=== PATIENT | female | born 1945 | race Caucasian/White ===

== ENCOUNTER 2017-06-13 14:26 | Inpatient (IN) | payer OTHER ==
[~2017-06-13] VITALS: Ht 160 cm; Wt 97.8 kg
[2017-06-13] MEDS ORDERED: ASPI81TA28 PO (17:14)
[2017-06-13] MEDS ORDERED: FURO-85 PO (17:14)
[2017-06-13] MEDS ORDERED: AMLO-114 PO (17:14)
[2017-06-13] MEDS ORDERED: TRIATAB3 PO (17:14)
[2017-06-13] MEDS ORDERED: CEPH500C2 PO (17:14)
--- NOTE | 2017-06-13 17:38 | DIAGNOSTIC IMAGING REPORT ---
CHEST ONE VIEW PORTABLE CLINICAL HISTORY: CHEST PAIN COMPARISON STUDY: No previous studies for comparison. FINDINGS: There is moderate elevation of the right hemidiaphragm. No pneumothorax or pleural effusion is noted. There is no consolidation. Moderate cardiomegaly is noted. IMPRESSION: 1. No acute cardiopulmonary findings. 2. Moderate cardiomegaly. 3. Mild to moderate elevation of the right hemidiaphragm. Electronically signed by: Samuel Torres M.D. 06/13/2017 5:36 PM Dictated Date/Time: 06/13/2017 5:34 PM
[2017-06-13 17:44] LABS: BASO % 0.2 %; BASO ABS # 0.01 K/uL (0-0.2); EOS % 1.8 %; EOS ABS # 0.09 K/uL (0-0.5); HEMATOCRIT 45.9 % (37-47); HEMOGLOBIN 15.5 g/dL (12.0-16.0); IG# 0.02 K/uL (0.00-0.02); LYMPH % 18.6 %; LYMPH ABS # 0.93 K/uL (1.2-3.4); MEAN CORPUSCULAR HGB CONC 33.8 g/dl (32-36); MEAN PLATELET VOLUME 10.6 fL (7.4-10.4); MONO ABS # 0.45 K/uL (0.11-0.59); NEUT ABS # 3.49 K/uL (1.4-6.5); PLATELET COUNT 171 K/uL (130-400); RED CELL DISTRIBUTION WIDTH SD 47.2 fL (36.4-46.3); WHITE BLOOD COUNT 4.99 K/uL (4.8-10.8)
[2017-06-13 18:01] LABS: ALBUMIN 3.3 gm/dl (3.4-5.0); CALCIUM 9.3 mg/dl (8.5-10.1); CREATININE 1.11 mg/dl (0.60-1.20); POTASSIUM 3.5 mmol/L (3.5-5.1)
[2017-06-13 18:07] LABS: TOTAL PROTEIN 7.1 gm/dl (6.4-8.2)
[2017-06-13] MEDS ORDERED: POTASSIUM CHLORIDE 10 MEQ TABCR PO STA (18:20)
[2017-06-13] MEDS ORDERED: MAGNESIUM SULFATE 1GM / D5W 1 GM BAG IV STA (18:20)
[2017-06-13] MEDS ORDERED: FUROSEMIDE 40 MG/4 ML VIAL IV STA (18:21)
--- NOTE | 2017-06-13 19:44 | Cardiology Consultation ---
Cardiology Consultation Date of Consultation: Jun 13, 2017 History of Present Illness Sharon Zelaya is a 71 year old female seen in stat cardiology consultation in the ED per the request of Dr Pedraza for evaluation of bradycardia and lower extremity edema. The patient had been seen at [facility] as a new patient yesterday 06/12/17 establishing care having transitioned from a [facility] practice. She had complained of 2 weeks of bilateral lower extremity swelling and pain with redness. Her shoes would not fit. She is having difficulty walking and associated shortness of breath with exertion. She is an apparent past medical history of hypertension, Raynaud's disease, and hiatal hernia with GERD. She is no past cardiac history. Laboratory studies performed yesterday as an outpatient revealed hemoglobin of 15.4, a proBNP level was elevated at 6,338 TG per mL. Lower extremity venous duplex performed yesterday revealed no evidence of acute deep venous thrombosis in the right lower extremity. 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 Patent left lower extremity venous system without evidence of acute deep venous thrombosis in the left lower extremity. A nonvascular cystic mass is noted in the popliteal fossa consistent with Ribeiro's cyst on the left side as well. After the lab results became available the patient was referred by telephone to the emergency department. EKG tracings were performed at 1721 and 1745 today both of which per my interpretation are consistent with high-grade AV block with junctional escape rhythm in the 40 bpm range. During my assessment of the patient in the emergency room she was without acute complaint. Her heart rate was 40 bpm and she denies any lightheadedness dizziness or chest discomfort. She was awake and oriented and talkative. From her description, it sounds as though she has not been hospitalized frequently in the past. She denies any past cardiac history. Her blood pressure ranged from a systolic blood pressure of 181-2 11 mmHg during my visit with her. She had recently received furosemide 40 mg IV and potassium chloride 40 mg equivalents p.o. History Past Medical History: 1. Hypertension 2. Raynaud's disease Past Surgical History: Hysterectomy performed in 1990 due to abnormal uterine bleeding Social History: Patient is a former smoker having quit 40 years ago. She denies alcohol use. 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 She lives with her son Kolton who accompanies her at the bedside today. Family History: She has no siblings. She is estranged from her father and does not know his past medical history. Her mother in her 60s and had suffered a stroke earlier in life. Review Of Systems 10 point review of systems is reviewed and is negative. Pertinent positives include generalized fatigue, lower extremity edema, and mild ulceration at the dorsum of her right foot at the base of her second toe Allergies Coded Allergies: Erythromycin (Unverified Allergy, Intermediate, ., 06/13/17) Penicillins (Unverified Allergy, Intermediate, ., 06/13/17) Medications Reported Home Medications Medications Dose Route/Sig Max Daily Dose Days Date Category Triamterene/Hctz 37.5-25MG (Triamterene/HCTZ) 1 Tab Tab 1 Tab PO DAILY 06/13/17 Reported Aspirin Ec (Aspirin) 81 Mg Tab 81 Mg PO DAILY 06/13/17 Reported Norvasc (Amlodipine Besylate) 10 Mg Tab 10 Mg PO DAILY 06/13/17 Reported Lasix (Furosemide) 20 Mg Tab 20 Mg PO BID 06/13/17 Reported Keflex (Cephalexin Monohydrate) 500 Mg Cap 500 Mg PO QID 10 06/13/17 Reported Physical Exam Vital Signs (Last 8hrs): Last 8 Hrs Date Time Temp Pulse Resp B/P (MAP) Pulse Ox O2 Delivery O2 Flow Rate FiO2 06/13/17 18:03 42 06/13/17 17:54 42 22 170/95 98 Room Air 06/13/17 17:21 95 Room Air 06/13/17 14:30 36.4 109 20 189/82 95 Room Air General Appearance: Alert and Oriented x3. NAD. Head: Normocephalic Atraumatic. Eyes: PERRLA, EOMI, conjunctiva and sclera clear Neck: Supple. No carotid bruits noted. No JVD. No HJD. Respiratory: Breath sounds clear to auscultation bilaterally. No w/r/r. Cardiovascular: Bradycardic Reg rate and rhythm. S1 and S2 noted. No murmurs, rubs, gallops. PMI non displace. Abdomen: Normal bowel sounds, soft nontender. no abdominal bruits. Extremities: 2+ lower extremity edema, ulceration at the base of the right second toe, stigmata of Raynaud phenomenon of hands/ fingers Neuro: No focal deficits. Psychiatric: Normal affect. Data Last Resulted 06/13/17 17:30 Red Blood Count 5.34, Mean Corpuscular Volume 86.0, Mean Corpuscular Hemoglobin 29.0, Mean Corpuscular Hemoglobin Concent 33.8, Mean Platelet Volume 10.6, Neutrophils (%) (Auto) 70.0, Lymphocytes (%) (Auto) 18.6, Monocytes (%) (Auto) 9.0, Eosinophils (%) (Auto) 1.8, Basophils (%) (Auto) 0.2, Neutrophils # (Auto) 3.49, Lymphocytes # (Auto) 0.93, Monocytes # (Auto) 0.45, Eosinophils # (Auto) 0.09, Basophils # (Auto) 0.01 Last Resulted 06/13/17 17:30 Past 24 Hours Test 06/13/17 17:30 Range/Units Troponin I 0.026 0-0.045 ng/ml EKG tracings performed this evening at 1721 &1745 consistent with high-grade AV block with junctional escape rhythm in the 40 bpm range. Age-indeterminate septal infarction pattern cannot be excluded. No prior baseline is available for comparison Assessment & Plan Impression: 71-year-old female 1. Symptomatic bradycardia with recent exertional shortness of breath, lower extremity edema, findings consistent with high-grade AV block. 2. Lower extremity edema is likely related to the above finding, although cardiomyopathy is also significant consideration. The elevated BNP noted as an outpatient could be due to the bradycardia issue alone with resultant fluid retention, or there may be additional issues of structural heart disease which are to be delineated with a transthoracic echocardiogram tomorrow. 3. Hypertension Recommendations: The patient is clinically stable and I do not think temporary transvenous pacemaker is necessary. Agree with placing pacer pads on her and having the defibrillator at the bedside in case worsening of her heart rate occurs overnight. I anticipate however that she will be stable. Recommend ICU level observation. I plan on performing an echocardiogram tomorrow, and having her assessed by electrophysiology for what I anticipate will be necessary implantation of a the permanent pacemaker. I would hold off on additional diuretics pending further assessment at present. Would continue her home dose of amlodipine as this does not seem to be the cause of her edema, and I believe she needs it for her Raynaud's disease. Continue to monitor and replace electrolytes as necessary. Case was discussed with Dr. Pderaza in the emergency room as well as the Ms Galan , the PA covering for critical care this evening.
[2017-06-13] MEDS ORDERED: ICU PROTOCOL FOR HYPERGLYCEMIA PRN (20:15)
--- NOTE | 2017-06-13 20:19 | EMERGENCY ROOM VISIT NOTE ---
History Report prepared by Cezar: Jocelyn Bowden Under the Supervision of: Dr. Semaj Pedraza M.D. First contact with patient: 16:44 Chief Complaint: REFERRED BY DOCTOR Stated Complaint: FLUID - REFERRED BY DOCTOR History of Present Illness The patient is a 71 year old female who presents to the Emergency Room with complaints of persistent leg swelling starting 1-2 weeks ago. The patient scheduled an appointment with her PCP for her leg swelling and had lab work drawn yesterday. She was started on antibiotics for her leg yesterday. She was told to present to the ED today because her labs were concerning for fluid retention and fluid around the heart. The patient has been feeling SOB which worsens with lying flat. She has noticed that she has gained weight. She denies any abdominal pain, chest pain, pain with deep breaths, fever, chills, cough, or congestion. She denies any history of heart failure, fluid retention, diabetes, or [place]. She has had superficial blood clots in her legs. She has a history of hypertension, osteoarthritis, and GERD. She is on aspirin. The patient has a history of Raynaud and states that it has been worse for the past couple of days. She was just recently prescribed Lasix. She is on triamterene. Source of History: patient Onset: 1-2 weeks ago Position: leg (bilateral) Quality: other (swelling) Timing: other (persistent) Associated Symptoms: + SOB, No fevers, No chills, No cough, No chest pain, No abdominal pain Note: Pt reports weight gain. Review of Systems See HPI for pertinent positives and negatives. A total of ten systems were reviewed and were otherwise negative. Past Medical & Surgical Medical Problems: (1) GERD (gastroesophageal reflux disease) (2) Hiatal hernia (3) HTN (hypertension) (4) Raynaud disease Surgical Problems: (1) History of hysterectomy Family History Noncontributory secondary to age. Social History Smoking Status: Never Smoker Marital Status: Occupation Status: retired Current/Historical Medications Scheduled Amlodipine (Norvasc), 10 MG PO DAILY Aspirin (Aspirin Ec), 81 MG PO DAILY Cephalexin Monohydrate (Keflex), 500 MG PO QID Triamterene/Hctz (Triamterene/Hctz 37.5-25MG), 1 TAB PO DAILY Scheduled PRN Furosemide (Lasix), 20 MG PO BID PRN for edema Allergies Coded Allergies: Erythromycin (Unverified Allergy, Intermediate, ., 06/13/17) Penicillins (Unverified Allergy, Intermediate, ., 06/13/17) Physical Exam Vital Signs Date Time Temp Pulse Resp B/P (MAP) Pulse Ox O2 Delivery O2 Flow Rate FiO2 06/13/17 19:41 49 18 174/80 95 Room Air 06/13/17 18:40 52 18 136/91 95 Room Air 06/13/17 18:03 42 06/13/17 17:54 42 22 170/95 98 Room Air 06/13/17 17:21 95 Room Air 06/13/17 14:30 36.4 109 20 189/82 95 Room Air Physical Exam GENERAL: Awake, alert, relatively well-appearing, in no distress HENT: Normocephalic, atraumatic. Oropharynx unremarkable. EYES: Normal conjunctiva. Sclera non-icteric. NECK: Supple. No nuchal rigidity. FROM. No JVD. RESPIRATORY: Clear to auscultation. CARDIAC: Bradycardic IRIR. Extremities warm and well perfused. Pulses equal. ABDOMEN: Soft, non-distended. No tenderness to palpation. No rebound or guarding. No masses. RECTAL: Deferred. MUSCULOSKELETAL: Chest examination reveals no tenderness. The back is symmetrical on inspection without obvious abnormality. There is no CVA tenderness to palpation. No joint edema. LOWER EXTREMITIES: Calves are equal size bilaterally and non-tender. 2+ bilateral lower extremity edema with erythema and warmth to the right lower leg and foot with small vesicles along the second phalanx. NEURO: Normal sensorium. No sensory or motor deficits noted. SKIN: No rash or jaundice noted. Medical Decision & Procedures ER Provider Diagnostic Interpretation: Xray results as stated below per my and radiologist interpretation: CHEST ONE VIEW PORTABLE CLINICAL HISTORY: CHEST PAIN COMPARISON STUDY: No previous studies for comparison. FINDINGS: There is moderate elevation of the right hemidiaphragm. No pneumothorax or pleural effusion is noted. There is no consolidation. Moderate cardiomegaly is noted. IMPRESSION: 1. No acute cardiopulmonary findings. 2. Moderate cardiomegaly. 3. Mild to moderate elevation of the right hemidiaphragm. Electronically signed by: Samuel Torres M.D. 06/13/2017 5:36 PM Dictated Date/Time: 06/13/2017 5:34 PM Laboratory Results 06/13/17 17:30 Red Blood Count 5.34, Mean Corpuscular Volume 86.0, Mean Corpuscular Hemoglobin 29.0, Mean Corpuscular Hemoglobin Concent 33.8, Mean Platelet Volume 10.6, Neutrophils (%) (Auto) 70.0, Lymphocytes (%) (Auto) 18.6, Monocytes (%) (Auto) 9.0, Eosinophils (%) (Auto) 1.8, Basophils (%) (Auto) 0.2, Neutrophils # (Auto) 3.49, Lymphocytes # (Auto) 0.93, Monocytes # (Auto) 0.45, Eosinophils # (Auto) 0.09, Basophils # (Auto) 0.01 Test 06/13/17 17:30 White Blood Count 4.99 K/uL (4.8-10.8) Red Blood Count 5.34 M/uL (4.2-5.4) Hemoglobin 15.5 g/dL (12.0-16.0) Hematocrit 45.9 % (37-47) Mean Corpuscular Volume 86.0 fL (80-100) Mean Corpuscular Hemoglobin 29.0 pg (25-34) Mean Corpuscular Hemoglobin Concent 33.8 g/dl (32-36) Platelet Count 171 K/uL (130-400) Mean Platelet Volume 10.6 fL (7.4-10.4) Neutrophils (%) (Auto) 70.0 % Lymphocytes (%) (Auto) 18.6 % Monocytes (%) (Auto) 9.0 % Eosinophils (%) (Auto) 1.8 % Basophils (%) (Auto) 0.2 % Neutrophils # (Auto) 3.49 K/uL (1.4-6.5) Lymphocytes # (Auto) 0.93 K/uL (1.2-3.4) Monocytes # (Auto) 0.45 K/uL (0.11-0.59) Eosinophils # (Auto) 0.09 K/uL (0-0.5) Basophils # (Auto) 0.01 K/uL (0-0.2) RDW Standard Deviation 47.2 fL (36.4-46.3) RDW Coefficient of Variation 15.0 % (11.5-14.5) Immature Granulocyte % (Auto) 0.4 % Immature Granulocyte # (Auto) 0.02 K/uL (0.00-0.02) Total Bilirubin 1.6 mg/dl (0.2-1) Direct Bilirubin 0.5 mg/dl (0-0.2) Aspartate Amino Transf (AST/SGOT) 27 U/L (15-37) Alanine Aminotransferase (ALT/SGPT) 26 U/L (12-78) Alkaline Phosphatase 73 U/L (45-117) Troponin I 0.026 ng/ml (0-0.045) Pro-B-Type Natriuretic Peptide 6905 pg/ml (0-900) Total Protein 7.1 gm/dl (6.4-8.2) Albumin 3.3 gm/dl (3.4-5.0) Lipase 184 U/L (73-393) Laboratory results reviewed by me Medications Administered Medications (Trade) Dose Ordered Sig/Vanessa Route Start Time Stop Time Status Last Admin Dose Admin Potassium Chloride (Klor-Con M10) 40 meq NOW STAT PO 06/13/17 18:20 06/13/17 18:21 DC 06/13/17 18:29 40 MEQ Magnesium Sulfate (Magnesium Sulfate) 2 gm NOW STAT IV 06/13/17 18:20 06/13/17 18:21 DC 06/13/17 18:30 2 GM Furosemide (Lasix Inj) 20 mg NOW STAT IV 06/13/17 18:21 06/13/17 18:22 DC 06/13/17 18:29 20 MG ECG Per My Interpretation Indication: SOB/dyspnea Rate (beats per minute): 40 Rhythm: other (junctional bradycardia) Findings: no acute ischemic change, other (right axis deviation, unspecified AV block) ED Course 164: The patient was evaluated in room C7. A complete history and physical exam was performed. 1820: Magnesium Sulfate 2 gm IV, Potassium Chloride 40 meq PO. 182: Lasix Inj 20 mg IV. 1824: I discussed the patient with Kin Mcclure cardiology - He will come and evaluate the patient. 1835: Upon reexamination, the patient was stable. I discussed the test results and treatment plan with her. The patient will be evaluated for further management. 1903: I discussed the patient with Kin Tijerina hospitalist - He will evaluate the patient for further treatment. Medical Decision I reviewed the patient's past medical history, medications, and the nursing notes as described above. Differential diagnosis: Etiologies such as infections, reactive airway disease, pneumonia, pneumothorax , COPD, CHF, cardiac ischemia, pulmonary embolism, musculoskeletal, gastrointestinal, cellulitis, abscess, MRSA infection, DVT, necrotizing fasciitis, dermatitis, drug eruption, as well as others were entertained. The patient is a 71-year-old woman who presents emergency department after having outpatient labs concerning for fluid overload with elevated BNP per hpi On arrival the patient is no acute distress, afebrile stable vital signs. She has 2+ bilateral lower extremity edema with erythema and warmth to the right. Diminished breath sounds at the bases but otherwise clear. EKG demonstrates a junctional bradycardia in the 40s with AV block. Patient's heart rate on the monitor will fluctuate from 50s to upper 30s. However mentating normally throughout. Denying any chest pain or worsening shortness of breath at this time. Pacer pads were placed on the patient as a precaution but otherwise no indication for emergent pacing. Blood pressure is hypertensive with systolic in the 170s. Labs otherwise unremarkable. Potassium 3.5 and Magnesium 1.9 were repleted. Patient given 20 mg of IV Lasix for her fluid overload. Chest x -ray demonstrates cardiomegaly but otherwise no overt pulmonary edema. Case was discussed with Kin Mcclure cardiology, who reviewed the EKG and agrees with the concern for heart block. He evaluated patient at the bedside and recommends admission for ICU for close monitoring. Case additionally discussed with Kin Tijerina hospitalist, who will admit the patient to the ICU. Medication Reconcilliation Current Medication List: was personally reviewed by me Blood Pressure Screening Patient's blood pressure: Elevated blood pressure Referred to hospitalist. Consults Time Called: 1818 Consulting Physician: Kin Mcclure cardiology Returned Call: [phone] I discussed the patient with him - He will come and evaluate the patient. Additional Consults: Time Called: 1839 Consulted Physician: Kin Tijerina hospitalist Returned Call: [phone] Additional Comments: I discussed the patient with him - He will evaluate the patient for further treatment. Impression Primary Impression: Heart block Additional Impressions: CHF (congestive heart failure) Lower extremity edema Critical Care I have personally spent greater than 35 minutes of critical care time in the direct management of this patient. This includes bedside care, interpretation of diagnostic studies, and testing, discussion with consultants, patient, and family members, and other required patient management activities. This 35 minutes is in excess of all separately billable procedures. Scribe Attestation The scribe's documentation has been prepared under my direction and personally reviewed by me in its entirety. I confirm that the note above accurately reflects all work, treatment, procedures, and medical decision making performed by me. Departure Information Dispostion Being Evaluated By Hospitalist Patient Instructions My [facility] Problem Qualifiers
[2017-06-13] MEDS ORDERED: AMLODIPINE BESYLATE 5 MG TAB PO ONE (20:30)
--- NOTE | 2017-06-13 20:54 | Critical Care Consultation ---
Critical Care Consultation Date of Consultation: Jun 13, 2017. Attending Physician: Dr. Quiroz Reason for Consultation: Symptomatic Bradycardia in the setting of 3rd degree AV block History of Present Illness Sharon Zelaya is a 71yo female who went to [facility] to establish a PCP when she complained of worsening shortness of breath for the last two weeks, increased leg swelling, difficulty moving about her home, and her shoes no longer fitting. Pt underwent a negative venous duplex and labwork. When the labwork came back today with a proBNP of 6,338; pt was called and advised to go to the nearest emergency room secondary to possible heart failure. Pt arrived here at [facility] and a subsequent EKG was performed that demonstrated high-grade AV block with junctional escape rhythm per cardiology. Pt remains with pacer pads in place. Per my discussion with Dr. Cunningham he does not feel pt requires transvenous pacing overnight as she is currently stable. Pt is asymptomatic at rest. She does state over the last 2 weeks she has been more fatigued and wears out quickly requiring naps through out the day. She has become short of breath walking around the house. She can not confirm orthopnea as she chronically sleeps at an inclined position secondary to gastric reflux and a hiatal hernia. She has not added additional pillows to her normal routine. Her lower extremities are very edematous, she believes that they are probably twice the normal size. They are red and painful at times. She is taking an antibiotic currently for a infection of two digits on her right foot. She believes them to look much improved. Pt was treated in the ED with Laxis 40mg IV and KCl 40meq PO. Pt is very concerned of her prognosis due to a prior experience when her daughter at the age of 48 after 2 cardiac arrests in one stay. Pt states there was no autopsy completed and not other family hx of sudden cardiac . Mother of a stroke. Father unknown after being abandoned at the age of 13. She denies any prior cardiac issues herself. Her son, Kolton, is here and is also very anxious about his mother's condition. I have spoken with him at length and at this time he would like to stay at the bedside with his mother doretha. Son Kolton also put pts daughter on the phone who is a nursing supervisor building maintenance that works in cardiology. I have answered all her questions and she feels that her mothers needs are being met. She is a full code in the event of cardiac/pulmonary arrest. Should she need to be intubated, she does not wish to undergo a tracheotomy. Son is aware of this wish. Pt states that she is willing to sign a medical record release from her prior doctors office. Other than gastroenterology the pt denies following with any other speciality including cardiology. Per her, significant past medical hx includes hypertension (of note she did not take her medications today), a complete hysterectomy, EGD with hiatal hernia, acid reflux, and distance smoking history 40 years ago. The patient denies weight loss, fever, dizziness, headache, muscle weakness, numbness, change in vision, sore throat, chest pain, palpitations, awareness of tachyarrhythmias, cough, nausea, vomiting, bloody stools, diarrhea, constipation , abdominal pain, other changes in urine or bowel habits. Past Medical/Surgical History Medical Problems: Complete heart block Gastro esophageal reflux disease Hiatal Hernia Hypertension Osteoarthritis Raynaud's Surgical History: EGD Hysterectomy Family History Mother: from stroke @ 60yo Father: Unknown Daughter: Cardiac Arrest x2 with Respiratory failure requiring tracheotomy Social History Smoking Status: Former Smoker (quit 40 years ago) Smokeless Tobacco Use: No Alcohol Use: none Drug Use: none Marital Status: (estranged from ) Housing Status: lives with family (lives with sonKolton) Occupation Status: retired Allergies Coded Allergies: Erythromycin (Unverified Allergy, Intermediate, ., 06/13/17) Penicillins (Unverified Allergy, Intermediate, ., 06/13/17) Home Medications Scheduled Amlodipine (Norvasc), 10 MG PO DAILY Aspirin (Aspirin Ec), 81 MG PO DAILY Cephalexin Monohydrate (Keflex), 500 MG PO QID Triamterene/Hctz (Triamterene/Hctz 37.5-25MG), 1 TAB PO DAILY Scheduled PRN Furosemide (Lasix), 20 MG PO BID PRN for edema Current Inpatient Medications Current Inpatient Medications Medications (Trade) Dose Ordered Sig/Vanessa Route Start Time Stop Time Status Last Admin Dose Admin Miscellaneous Information (Icu Protocol For Hyperglycemia) 1 ea PRN PRN N/A 06/13/17 20:15 06/15/17 20:14 UNV Review of Systems 12 systems reviewed and negative other than previously mentioned in the HPI. Physical Exam Date Time Temp Pulse Resp B/P (MAP) Pulse Ox O2 Delivery O2 Flow Rate FiO2 06/13/17 19:41 49 18 174/80 95 Room Air 06/13/17 18:40 52 18 136/91 95 Room Air 06/13/17 18:03 42 06/13/17 17:54 42 22 170/95 98 Room Air 06/13/17 17:21 95 Room Air 06/13/17 14:30 36.4 109 20 189/82 95 Room Air Vital Signs - as noted Laboratory Data - as noted Physical Exam: General - NAD, siting upright in bed Eyes - PERRL, EOMI No icterus, gaze conjugate ENT - Mucosa moist, no lesions or candidiasis Neck - Supple, trachea midline, no masses or lymphadenopathy, no JVD or bruits Lungs - No paradoxical chest wall movement, clear to auscultation bilaterally, no wheezes, rales, or rhonchi Heart - bradycardic regular rhythm in the 40's, No murmur, rubs, clicks, or gallops appreciated Abdomen - BS present, no bruits noted, tympanic to percussion, soft, nontender, nondistended, no organomegaly Extremities - Pitting Edema noted to the knees, warm to the touch, minimally- tender, pedal pulses intact, blistering of the second digit and bruising of the first digit on the right lower extremity, cyanotic Raynaud appearance of bilateral fingers/hands Neuro - A&OX4 Strength extremities equal and appropriate bilaterally Reflexes: Bicep, brachioradialis, patellar, and plantar normal and equal CN:PERRL, EOMI, no facial asymmetry, uvula/tongue midline Laboratory Results Last 24 Hours Test 06/13/17 17:30 White Blood Count 4.99 K/uL Red Blood Count 5.34 M/uL Hemoglobin 15.5 g/dL Hematocrit 45.9 % Mean Corpuscular Volume 86.0 fL Mean Corpuscular Hemoglobin 29.0 pg Mean Corpuscular Hemoglobin Concent 33.8 g/dl Platelet Count 171 K/uL Mean Platelet Volume 10.6 fL Neutrophils (%) (Auto) 70.0 % Lymphocytes (%) (Auto) 18.6 % Monocytes (%) (Auto) 9.0 % Eosinophils (%) (Auto) 1.8 % Basophils (%) (Auto) 0.2 % Neutrophils # (Auto) 3.49 K/uL Lymphocytes # (Auto) 0.93 K/uL Monocytes # (Auto) 0.45 K/uL Eosinophils # (Auto) 0.09 K/uL Basophils # (Auto) 0.01 K/uL RDW Standard Deviation 47.2 fL RDW Coefficient of Variation 15.0 % Immature Granulocyte % (Auto) 0.4 % Immature Granulocyte # (Auto) 0.02 K/uL Sodium Level 137 mmol/L Potassium Level 3.5 mmol/L Chloride Level 103 mmol/L Carbon Dioxide Level 26 mmol/L Anion Gap 8.0 mmol/L Blood Urea Nitrogen 17 mg/dl Creatinine 1.11 mg/dl Est Creatinine Clear Calc Drug Dose 47.2 ml/min Estimated GFR () 57.1 Estimated GFR (Non- 49.2 BUN/Creatinine Ratio 15.0 Random Glucose 109 mg/dl Calcium Level 9.3 mg/dl Magnesium Level 1.9 mg/dl Total Bilirubin 1.6 mg/dl Direct Bilirubin 0.5 mg/dl Aspartate Amino Transf (AST/SGOT) 27 U/L Alanine Aminotransferase (ALT/SGPT) 26 U/L Alkaline Phosphatase 73 U/L Troponin I 0.026 ng/ml Pro-B-Type Natriuretic Peptide 6905 pg/ml Total Protein 7.1 gm/dl Albumin 3.3 gm/dl Lipase 184 U/L Diagnostic Results CHEST ONE VIEW PORTABLE CLINICAL HISTORY: CHEST PAIN COMPARISON STUDY: No previous studies for comparison. FINDINGS: There is moderate elevation of the right hemidiaphragm. No pneumothorax or pleural effusion is noted. There is no consolidation. Moderate cardiomegaly is noted. IMPRESSION: 1. No acute cardiopulmonary findings. 2. Moderate cardiomegaly. 3. Mild to moderate elevation of the right hemidiaphragm. Electronically signed by: Samuel Torres M.D. 06/13/2017 5:36 PM Dictated Date/Time: 06/13/2017 5:34 PM Assessment & Plan (1) Heart block (2) CHF (congestive heart failure) (3) Lower extremity edema (4) Hypertension Reason Critically Ill: Patient is an 71-year-old female who is transferred to the ICU for close monitoring and treatment of suspected heart failure in the setting of heart block. PLAN: CV: * Dr. Cunningham of [facility] on board, appreciate input * Pt to be evaluated for permanent pacemaker * Unsure of timing, however, will make NPO after midnight in case * Continue home dose of Amlodipine per cardiology for Raynaud's treatment * ECHO in AM * Pacer pads to remain in place on monitor overnight * Trend and replete electrolytes per protocol * Hold any additional doses of lasix at this time * Hypertension * Goal SBP < 180 overnight * EKG with any changes * Monitor on telemetry * Troponin negative x 1, no noted ischemia on EKG * proBNP in ED: 6905 Neuro: * No complaints of pain * No outpt medication noted * Tylenol as needed if pain should occur Resp: * Supplemental oxygen as required * No known outpt respiratory issues Fluids/Renal: * Lasix in ED * Monitor I&Os * Electrolyte repleted per protocol * No rothman at this time ID: * Continue outpt Keflex for right pedal infection * WBC: 4.99 * Afebrile, Trend fever curve GI/Nutrition: * NPO after midnight * LFT AST/ALT WNL, elevated Bili * GERD Heme: * No signs of bleeding at this time * H&H: 15.5/45.9 * DVT: Prophylaxis: SCDs ordered Endocrine: * Accu-Checks per protocol, started insulin infusion for 2 blood sugars greater than 180 CCT: 60 Minutes; This time is exclusive of all separately billable procedures. Thank you for involving us in the care of this patient. Please refer to Dr. Ruel Madsen's addendum for further recommendations. I have reviewed the documentation. I agree with assessment and plan of Olga Galan PA-C.
[2017-06-13 21:53] VITALS: BP 170/92; PULSE 41; TEMP 36.8; O2SAT 94; Ht 160 cm; Wt 97.8 kg
[2017-06-13 22:00] VITALS: BP 160/74; PULSE 41
--- NOTE | 2017-06-13 22:01 | History and Physical ---
History & Physical Date & Time of Service: Jun 13, 2017 ~ 19:45 Chief Complaint: Lower Extremity Swelling, Shortness of Breath Primary Care Physician: No Doctor, Assigned History of Present Illness 71-year-old female who presents to the ER with bilateral lower extremity swelling and shortness of breath. Patient reports her symptoms have been going on for approximately the past 2 weeks. Patient recently established care at [facility] and was evaluated in the clinic yesterday. She had bilateral lower extremity Dopplers completed that were negative for DVT. Outpatient proBNP was checked and was elevated. Patient was sent to the ER for further evaluation. Patient reports she has been feeling well up until the past couple weeks. Reports that she is generally very active however is felt generally fatigued over the past couple of weeks as well. She has had exertional shortness of breath but denies orthopnea. She does not monitor her weight routinely. She denies chest pain, palpitations, lightheadedness, dizziness, diaphoresis, and syncopal events. No abdominal pain, nausea, vomiting, or diarrhea. She denies fever or chills. No urinary symptoms. At the clinic yesterday she was found to have blistering and redness over the first and second toes of the right foot. She was given a prescription for Keflex. In the ED patient was found to be in complete heart block. Her blood pressure has remained stable. Labs show a mild hypomagnesemia, otherwise unremarkable. Patient was given Lasix 20 mg IV and potassium and magnesium replacement. She was evaluated by cardiology in the ED. She will be admitted to the ICU for further management. Past Medical/Surgical History Medical Problems: (1) GERD (gastroesophageal reflux disease) Status: Chronic (2) Hiatal hernia Status: Chronic (3) HTN (hypertension) Status: Chronic (4) Raynaud disease Status: Chronic Surgical Problems: (1) History of hysterectomy Status: Chronic Family History Stroke MOTHER Social History Smoking Status: Former Smoker (quit 40 years ago) Alcohol Use: none Allergies Coded Allergies: Erythromycin (Unverified Allergy, Intermediate, ., 06/13/17) Penicillins (Unverified Allergy, Intermediate, ., 06/13/17) Home Medications Scheduled Amlodipine (Norvasc), 10 MG PO DAILY Aspirin (Aspirin Ec), 81 MG PO DAILY Cephalexin Monohydrate (Keflex), 500 MG PO QID Triamterene/Hctz (Triamterene/Hctz 37.5-25MG), 1 TAB PO DAILY Scheduled PRN Furosemide (Lasix), 20 MG PO BID PRN for edema Review of Systems ROS per HPI, all other systems reviewed and negative Physical Exam Vital Signs Date Time Temp Pulse Resp B/P (MAP) Pulse Ox O2 Delivery O2 Flow Rate FiO2 06/13/17 21:00 45 18 160/74 95 Room Air 06/13/17 19:41 49 18 174/80 95 Room Air 06/13/17 18:40 52 18 136/91 95 Room Air 06/13/17 18:03 42 06/13/17 17:54 42 22 170/95 98 Room Air 06/13/17 17:21 95 Room Air 06/13/17 14:30 36.4 109 20 189/82 95 Room Air General Appearance: WD/WN, no apparent distress Head: normocephalic, atraumatic Eyes: normal inspection, EOMI, sclerae normal ENT: hearing grossly normal, + pertinent finding (mucous membranes moist) Neck: supple, no JVD, trachea midline Respiratory/Chest: lungs clear, normal breath sounds, no respiratory distress Cardiovascular: normal peripheral pulses, + bradycardia (regular rhythm), + pertinent finding (+3 edema BLLE) Abdomen/GI: normal bowel sounds, non tender, soft Extremities/Musculoskelatal: normal inspection, no calf tenderness, normal capillary refill Neurologic/Psych: no motor/sensory deficits, alert, normal mood/affect, oriented x 3 Skin: + cyanosis (Raynaud like appearance noted to BL fingers), + pertinent finding (bruising and blistering noted to right 1st and 2nd toes with some surrounding erythema) Diagnostics Laboratory Results Results Past 24 Hours Test 06/13/17 17:30 Range/Units White Blood Count 4.99 4.8-10.8 K/uL Red Blood Count 5.34 4.2-5.4 M/uL Hemoglobin 15.5 12.0-16.0 g/dL Hematocrit 45.9 37-47 % Mean Corpuscular Volume 86.0 80-100 fL Mean Corpuscular Hemoglobin 29.0 25-34 pg Mean Corpuscular Hemoglobin Concent 33.8 32-36 g/dl Platelet Count 171 130-400 K/uL Mean Platelet Volume 10.6 7.4-10.4 fL Neutrophils (%) (Auto) 70.0 % Lymphocytes (%) (Auto) 18.6 % Monocytes (%) (Auto) 9.0 % Eosinophils (%) (Auto) 1.8 % Basophils (%) (Auto) 0.2 % Neutrophils # (Auto) 3.49 1.4-6.5 K/uL Lymphocytes # (Auto) 0.93 1.2-3.4 K/uL Monocytes # (Auto) 0.45 0.11-0.59 K/uL Eosinophils # (Auto) 0.09 0-0.5 K/uL Basophils # (Auto) 0.01 0-0.2 K/uL RDW Standard Deviation 47.2 36.4-46.3 fL RDW Coefficient of Variation 15.0 11.5-14.5 % Immature Granulocyte % (Auto) 0.4 % Immature Granulocyte # (Auto) 0.02 0.00-0.02 K/uL Sodium Level 137 136-145 mmol/L Potassium Level 3.5 3.5-5.1 mmol/L Chloride Level 103 98-107 mmol/L Carbon Dioxide Level 26 21-32 mmol/L Anion Gap 8.0 3-11 mmol/L Blood Urea Nitrogen 17 7-18 mg/dl Creatinine 1.11 0.60-1.20 mg/dl Est Creatinine Clear Calc Drug Dose 47.2 ml/min Estimated GFR () 57.1 Estimated GFR (Non- 49.2 BUN/Creatinine Ratio 15.0 10-20 Random Glucose 109 70-99 mg/dl Calcium Level 9.3 8.5-10.1 mg/dl Magnesium Level 1.9 1.8-2.4 mg/dl Total Bilirubin 1.6 0.2-1 mg/dl Direct Bilirubin 0.5 0-0.2 mg/dl Aspartate Amino Transf (AST/SGOT) 27 15-37 U/L Alanine Aminotransferase (ALT/SGPT) 26 12-78 U/L Alkaline Phosphatase 73 45-117 U/L Troponin I 0.026 0-0.045 ng/ml Pro-B-Type Natriuretic Peptide 6905 0-900 pg/ml Total Protein 7.1 6.4-8.2 gm/dl Albumin 3.3 3.4-5.0 gm/dl Lipase 184 73-393 U/L Diagnostic Radiology CXR IMPRESSION: 1. No acute cardiopulmonary findings. 2. Moderate cardiomegaly. 3. Mild to moderate elevation of the right hemidiaphragm. Impression Assessment and Plan COMPLETE HEART BLOCK LOWER EXTREMITY EDEMA -Admit patient to ICU -Patient presenting by referral of PCP for evaluation of lower extremity edema and elevated proBNP; in the ED patient was found to be in complete heart block -Blood pressure has remained stable -Evaluated by cardiology in the ED; planning on likely pacemaker placement tomorrow -Keep pacer pads on in the event patient deteriorates -Lower extremity edema likely secondary to complete heart block, however echocardiogram will be performed tomorrow -S/P Lasix 20 mg IV in the ED, will hold on further diuresis for now -Case discussed with Maryann Galan PA-C from ICU HYPERTENSION -BP intermittently elevated, will continue amlodipine -Hold Maxide for now RIGHT FOOT CELLULITIS -Continue cephalexin DVT PROPHYLAXIS -SCDs in light of possible invasive procedure tomorrow CODE STATUS -Patient is a full code as per discussion with ICU team DISPOSITION -In my clinical judgment this beneficiary meets acute admission criteria, established by [facility], that includes being hospitalized through two midnights. Resuscitation Status VTE Prophylaxis Will order VTE Prophylaxis: Yes Note ATTENDING ADDENDUM Record reviewed. Patient interviewed and examined. Care coordinated with INDRA Robledo. Please refer to her documentation for patient's history. Briefly, 71-year-old female with history of hypertension and other problems as noted. [facility] to establish as a new patient. Experiencing dyspnea on exertion and lower extremity edema that started 2-3 weeks prior to admission. Refer to ED for further evaluation and treatment. Found to be bradycardic with third-degree AV block. External pacemaker utilized in standby mode. Has remained alert and hemodynamically stable. Cardiology consulted and evaluated the patient in the ED. EXAM: General-adult female, no distress VS- as noted HEENT-anicteric Neck-no JVD Lungs-clear to auscultation Heart-bradycardic, slightly irregular, 1/6 systolic murmur at base Abdomen-normal bowel sounds, soft, nontender Extremities- 2-3+ pretibial edema Neuro-alert, oriented DATA: Hemoglobin 15.5, white count 4990, platelet count 171,000. Sodium 137, potassium 3.5, chloride 103, CO2 26, BUN 17, creatinine 1.11, glucose 109. Total bilirubin 1.6, AST 27, ALT 26, alkaline phosphatase 73. Troponin 0 0.026. ProBNP 6905. Chest x-ray reviewed by the undersigned interpreted formally by Radiology: Cardiomegaly, calcification aortic arch, no infiltrates, effusions, CHF. EKG performed at 1721 reviewed and showed baseline artifact, bradycardia 40/ minute, probable third degree AV block. ASSESSMENT AND PLAN: Severe bradycardia secondary to third-degree AV block. Chest x-ray demonstrates cardiomegaly. Hemodynamically stable and mentating well. External pacemaker applied in standby mode. Cardiology consulted. Echocardiogram pending. Check TSH and Lyme screen. Further management per Cardiology. Please refer to KIRAN Multani's documentation for discussion of other issues. Lawson Quiroz MD .
[2017-06-13] MEDS: CEPHALEXIN MONOHYDRATE 500 MG CAP PO SCH (22:46)
[2017-06-13 23:01] VITALS: BP 141/84; PULSE 39; TEMP 37; O2SAT 92
[2017-06-13 23:59] VITALS: O2SAT 94
[2017-06-14] VITALS (22 sets, daily range): BP systolic 125–178; BP diastolic 69–94; PULSE 39–117; TEMP 36.6–37.1; O2SAT 91–98
[2017-06-14 00:48] LABS: CALCIUM 8.7 mg/dl (8.5-10.1); CREATININE 1.03 mg/dl (0.60-1.20); POTASSIUM 3.4 mmol/L (3.5-5.1)
[2017-06-14] MEDS ORDERED: POTASSIUM CHLORIDE 20 MEQ TABCR PO ONE (01:15)
[2017-06-14] MEDS ORDERED: ALUMINUM/MAGNESIUM SUSP 30 ML UDC PO PRN (01:15)
[2017-06-14 06:15] LABS: HEMATOCRIT 46.4 % (37-47); HEMOGLOBIN 15.8 g/dL (12.0-16.0); MEAN CELL VOLUME 85.5 fL (80-100); MEAN CORPUSCULAR HEMOGLOBIN 29.1 pg (25-34); MEAN CORPUSCULAR HGB CONC 34.1 g/dl (32-36); MEAN PLATELET VOLUME 11.2 fL (7.4-10.4); PLATELET COUNT 170 K/uL (130-400); RED CELL DISTRIBUTION WIDTH CV 15.2 % (11.5-14.5); RED CELL DISTRIBUTION WIDTH SD 47.2 fL (36.4-46.3); WHITE BLOOD COUNT 4.16 K/uL (4.8-10.8)
[2017-06-14 06:26] LABS: INR 1.1 (0.9-1.1); PTT PATIENT 28.9 SECONDS (21.0-31.0)
[2017-06-14 06:42] LABS: HEMOGLOBIN A1C 5.9 % (4.5-5.6)
[2017-06-14 06:57] LABS: ALBUMIN 3.2 gm/dl (3.4-5.0); CALCIUM 8.7 mg/dl (8.5-10.1); CREATININE 1.06 mg/dl (0.60-1.20); POTASSIUM 4.2 mmol/L (3.5-5.1)
[2017-06-14 07:00] LABS: PHOSPHORUS 3.6 mg/dl (2.5-4.9); TOTAL PROTEIN 6.6 gm/dl (6.4-8.2)
--- NOTE | 2017-06-14 09:11 | ECHOCARDIOGRAM REPORT ---
*NOTICE TO RECEIVING [employer] This information is strictly Confidential and protected under [place] law. [place] law prohibits you from making any further disclosure of this information unless further disclosure is expressly permitted by the written consent of the person to whom it pertains or is authorized by law. A general authorization for the release of medical or other information is not sufficient for this purpose. Hospital accepts no responsibility if the information is made available to any other person, INCLUDING THE PATIENT. Interpretation Summary * Name: EDWIN GRIFFIN Study Date: 06/14/2017 05:52 AM BP: 144/76 mmHg * Patient Location: E112 HR: 40 * : 1945 (M/d/yyyy) Gender: Female Height: 63 in * Age: 71 yrs Ethnicity: CA Weight: 191 lb * Ordering Physician: Remington Cunningham * Referring Physician: Self, Referred * Performed By: Ashley Hoang RCS * * Reason For Study: Bradycardia, AV Block, SOB * BSA: 1.9 m2 * The study was technically adequate. * -- Conclusions -- * Third degree AV block was present during the echocardiogram with ventricular rate of 40 bpm. * Flattened septum is consistent with RV pressure/volume overload with septal dyskinesis. * The right ventricle is severely dilated. * The right ventricular systolic function is severely reduced. * The interatrial septum bows toward the left atrium consistent with elevated right atrial pressure. * There is moderate tricuspid regurgitation. * There is severe pulmonary hypertension. * The calculated PA systolic pressure is 65 mm Hg. * The left ventricular cavity is small in comparison to the right ventricle due to the severe displacement of the septal. * The LV * The LV Ejection Fraction = 55-60%. Procedure Details * A complete two-dimensional transthoracic echocardiogram was performed (2D, M-mode, Doppler and color flow Doppler). Left Ventricle * The left ventricular cavity is small. * There is normal left ventricular wall thickness. * Left ventricular systolic function is normal. * Ejection Fraction = 55-60%. * Flattened septum is consistent with RV pressure/volume overload. * The LV wall motion was otherwise normal. Right Ventricle * The right ventricle is severely dilated. * The right ventricular systolic function is severely reduced. Atria * The left atrial size is normal. * The right atrium is severely dilated. * There is no evidence of atrial septal defect, but resolution does not allow assessment for a patent foramen ovale. * The interatrial septum bows toward the left atrium consistent with elevated right atrial pressure. Mitral Valve * The mitral valve is normal. * There is no mitral valve stenosis. * Significant mitral regurgitation is absent. Tricuspid Valve * The tricuspid valve is normal. * There is no tricuspid stenosis. * There is severe pulmonary hypertension. The calculated PA systolic pressure is 65 mm Hg. * There is moderate tricuspid regurgitation. Aortic Valve * The aortic valve is trileaflet. * Aortic valve sclerosis mild, without significant aortic valvular stenosis. * Aortic stenosis is absent. * There is no significant aortic regurgitation. Pulmonic Valve * The pulmonary valve is not well seen, but the Doppler examination is normal without significant regurgitation or stenosis. Great Vessels * The aortic root and proximal ascending aorta are normal sized. Pericardium/Pleural * There is no pericardial effusion. Great Vessels * Normal inferior vena cava diameter and respiratory variation suggests normal central venous pressure. * Normal inferior vena cava size and collapsability with sniff indicates a normal right atrial pressure of 3 mmHg Left Ventricular Diastolic Function * The LV diastolic function is abnormal. MMode 2D Measurements and Calculations IVSd 0.91 cm IVSs 1.2 cm LVIDd 4.6 cm LVIDs 3.1 cm LVPWd 0.91 cm LVPWs 1.4 cm IVS/LVPW 1.0 FS 32.9 % EDV(Teich) 98.6 ml ESV(Teich) 38.0 ml EF(Teich) 61.4 % EDV(cubed) 98.9 ml ESV(cubed) 29.9 ml EF(cubed) 69.8 % % IVS thick 30.9 % % LVPW thick 53.8 % LV mass(C)d 141.9 grams LV mass(C)dI 74.8 grams/m\S\2 LV mass(C)s 130.4 grams LV mass(C)sI 68.8 grams/m\S\2 SV(Teich) 60.5 ml SI(Teich) 31.9 ml/m\S\2 SV(cubed) 69.0 ml SI(cubed) 36.4 ml/m\S\2 Ao root diam 3.8 cm Ao root area 11.3 cm\S\2 ACS 1.4 cm LA dimension 4.9 cm asc Aorta Diam 3.4 cm LA/Ao 1.3 EDV(MOD-sp4) 67.4 ml ESV(MOD-sp4) 28.4 ml EF(MOD-sp4) 57.8 % EDV(MOD-sp2) 78.5 ml ESV(MOD-sp2) 27.5 ml EF(MOD-sp2) 64.9 % SV(MOD-sp4) 38.9 ml SI(MOD-sp4) 20.5 ml/m\S\2 SV(MOD-sp2) 50.9 ml SI(MOD-sp2) 26.9 ml/m\S\2 Doppler Measurements and Calculations MV E max kervin 63.4 cm/sec MV A max kervin 94.5 cm/sec MV E/A 0.67 MV P1/2t max kervin 55.6 cm/sec MV P1/2t 151.7 msec MVA(P1/2t) 1.4 cm\S\2 MV dec slope 107.4 cm/sec\S\2 MV dec time 0.36 sec Ao V2 max 174.1 cm/sec Ao max PG 12.1 mmHg Ao max PG (full) 5.8 mmHg AI max kervin 406.2 cm/sec AI max PG 66.0 mmHg AI dec slope 90.0 cm/sec\S\2 AI P1/2t 1322.3 msec LV V1 max PG 6.3 mmHg LV V1 max 125.4 cm/sec PA V2 max 96.2 cm/sec PA max PG 3.7 mmHg PI max kervin 202.9 cm/sec PI max PG 16.9 mmHg PI dec slope 104.6 cm/sec\S\2 PI P1/2t 568.2 msec TR max kervin 394.7 cm/sec
--- NOTE | 2017-06-14 09:28 | Critical Care Progress Note ---
Critical Care Progress Note Date of Service Jun 14, 2017. Attending Dr. Madsen Subjective She is ok AM today. HR still slow. B/P stable. No worsening dyspnea. No fever or chills. Meds noted and stable. No cognitive changes suggested AM today. Objective no distress Vitals--B/P stable. Pulse is 40 range at time of exam Pulmonary--exchange is adequate Cardio--slow--noted LE edema. No loud murmur GI--functional Neuro--no focal neuro changes. Musculo--stable Skin--no lesions suggested Assessment & Plan Bradycardia/Pulmonary HTN/ RV dysfunction-- 1. Cardio--conduction system disease--pacer likely planned by cardiology 2. Pulmonary--general supportive measures 3. GI--OBR 4. F/E/N--replace appropriates Data Medications: Current Inpatient Medications Medications (Trade) Dose Ordered Sig/Vanessa Route Start Time Stop Time Status Last Admin Dose Admin Miscellaneous Information ([facility] Protocol For Hyperglycemia) 1 ea PRN PRN N/A 06/13/17 20:15 06/15/17 20:14 Amlodipine Besylate (Norvasc Tab) 10 mg DAILY PO 06/14/17 09:00 07/14/17 08:59 Aspirin (Ecotrin Tab) 81 mg DAILY PO 06/14/17 09:00 07/14/17 08:59 Cephalexin Monohydrate (Keflex Cap) 500 mg QID PO 06/13/17 21:00 06/23/17 20:59 06/13/17 22:46 500 MG Al Hydroxide/Mg Hydroxide (Maalox Susp) 15 ml Q6H PRN PO 06/14/17 01:15 07/14/17 01:14 06/14/17 01:39 15 ML Vital Signs: Date Time Temp Pulse Resp B/P (MAP) Pulse Ox O2 Delivery O2 Flow Rate FiO2 06/14/17 08:00 36.9 42 18 165/76 (105) 96 Nasal Cannula 2.0 06/14/17 07:59 96 Nasal Cannula 2.0 06/14/17 07:00 36.9 40 17 162/78 (106) 98 Nasal Cannula 2.0 06/14/17 06:00 40 12 146/77 (100) 98 Nasal Cannula 2.0 06/14/17 05:00 40 20 167/76 (106) 97 Nasal Cannula 2.0 06/14/17 04:00 37.1 40 17 144/76 (98) 91 Room Air 06/14/17 04:00 91 Room Air 06/14/17 03:00 39 20 138/69 (92) 91 Room Air 06/14/17 02:00 40 20 152/90 (110) 95 Room Air 06/14/17 01:01 39 20 125/73 (90) 91 Room Air 06/14/17 00:04 41 161/78 (105) 92 Room Air 06/13/17 23:59 94 Room Air 06/13/17 23:01 37.0 39 25 141/84 (103) 92 Room Air 06/13/17 22:00 41 26 160/74 (102) Room Air 06/13/17 21:53 36.8 41 20 170/92 94 Room Air 06/13/17 21:00 45 18 160/74 95 Room Air 06/13/17 19:41 49 18 174/80 95 Room Air 06/13/17 18:40 52 18 136/91 95 Room Air 06/13/17 18:03 42 06/13/17 17:54 42 22 170/95 98 Room Air 06/13/17 17:21 95 Room Air 06/13/17 14:30 36.4 109 20 189/82 95 Room Air Laboratory Results: Last 24 Hours Test 06/13/17 17:30 06/14/17 00:00 06/14/17 05:45 06/14/17 05:57 White Blood Count 4.99 K/uL 4.16 K/uL Red Blood Count 5.34 M/uL 5.43 M/uL Hemoglobin 15.5 g/dL 15.8 g/dL Hematocrit 45.9 % 46.4 % Mean Corpuscular Volume 86.0 fL 85.5 fL Mean Corpuscular Hemoglobin 29.0 pg 29.1 pg Mean Corpuscular Hemoglobin Concent 33.8 g/dl 34.1 g/dl Platelet Count 171 K/uL 170 K/uL Mean Platelet Volume 10.6 fL 11.2 fL Neutrophils (%) (Auto) 70.0 % Lymphocytes (%) (Auto) 18.6 % Monocytes (%) (Auto) 9.0 % Eosinophils (%) (Auto) 1.8 % Basophils (%) (Auto) 0.2 % Neutrophils # (Auto) 3.49 K/uL Lymphocytes # (Auto) 0.93 K/uL Monocytes # (Auto) 0.45 K/uL Eosinophils # (Auto) 0.09 K/uL Basophils # (Auto) 0.01 K/uL RDW Standard Deviation 47.2 fL 47.2 fL RDW Coefficient of Variation 15.0 % 15.2 % Immature Granulocyte % (Auto) 0.4 % Immature Granulocyte # (Auto) 0.02 K/uL Sodium Level 137 mmol/L 139 mmol/L 139 mmol/L Potassium Level 3.5 mmol/L 3.4 mmol/L 4.2 mmol/L Chloride Level 103 mmol/L 105 mmol/L 106 mmol/L Carbon Dioxide Level 26 mmol/L 25 mmol/L 24 mmol/L Anion Gap 8.0 mmol/L 9.0 mmol/L 9.0 mmol/L Blood Urea Nitrogen 17 mg/dl 16 mg/dl 17 mg/dl Creatinine 1.11 mg/dl 1.03 mg/dl 1.06 mg/dl Est Creatinine Clear Calc Drug Dose 47.2 ml/min 54.0 ml/min 51.9 ml/min Estimated GFR () 57.1 62.5 60.3 Estimated GFR (Non- 49.2 53.9 52.0 BUN/Creatinine Ratio 15.0 15.6 15.7 Random Glucose 109 mg/dl 122 mg/dl 104 mg/dl Calcium Level 9.3 mg/dl 8.7 mg/dl 8.7 mg/dl Magnesium Level 1.9 mg/dl 2.2 mg/dl 2.3 mg/dl Total Bilirubin 1.6 mg/dl 1.5 mg/dl Direct Bilirubin 0.5 mg/dl 0.4 mg/dl Aspartate Amino Transf (AST/SGOT) 27 U/L 24 U/L Alanine Aminotransferase (ALT/SGPT) 26 U/L 23 U/L Alkaline Phosphatase 73 U/L 68 U/L Troponin I 0.026 ng/ml Pro-B-Type Natriuretic Peptide 6905 pg/ml 6903 pg/ml Total Protein 7.1 gm/dl 6.6 gm/dl Albumin 3.3 gm/dl 3.2 gm/dl Lipase 184 U/L Prothrombin Time 11.6 SECONDS Prothromb Time International Ratio 1.1 Activated Partial Thromboplast Time 28.9 SECONDS Partial Thromboplastin Ratio 1.1 Estimated Average Glucose 123 mg/dl Hemoglobin A1c 5.9 % Phosphorus Level 3.6 mg/dl Thyroid Stimulating Hormone (TSH) 4.600 uIu/ml Lyme Disease IgG Antibody NEG Lyme Disease IgM Antibody NEG Bedside Glucose 107 mg/dl
[2017-06-14] MEDS: ASPIRIN 81 MG ECTAB PO SCH (10:01)
[2017-06-14] MEDS: CEPHALEXIN MONOHYDRATE 500 MG CAP PO SCH ×4 (10:01→20:19)
[2017-06-14] MEDS: AMLODIPINE BESYLATE 5 MG TAB PO SCH (10:02)
--- NOTE | 2017-06-14 10:11 | Clinical Documentation Query ---
CLINICAL DOCUMENTATION QUERY 71 year old female who presents to the Emergency Room with complaints of persistent leg swelling and SOB In your clinical opinion is this patient being managed for: ( X ) Acute RV systolic CHF treated with IV Lasix. ( ) Not Agree ( ) Other explanation of clinical findings (Please Explain) ( ) Unable to determine (Please Define) ( ) Need to Discuss The medical record reflects the following clinical findings, treatment, and risk factors. Clinical Indicators: SOB, LE edema, Echo showing severely reduced RV systolic function, HR 40's, Treatment: IV Lasix, Echo, cardiology consult, I/O's, daily weights, Risk Factors: Age, bradycardia, HTN, Please clarify and document your clinical opinion in the progress notes and discharge summary. Terms such as "probable", "suspected", "likely", "questionable", "possible", or "still to be ruled out" are acceptable. IF IN AGREEMENT, YOU MUST DOCUMENT ABOVE DIAGNOSTIC STATEMENT IN DAILY PROGRESS NOTES AND DISCHARGE SUMMARY. This document is not part of the patient's record. Thank You, Humberto Gonzáles, RN [phone]
[2017-06-14] MEDS ORDERED: CLINDAMYCIN PHOS 150 MG/ML 2 ML VIAL ONE (10:52)
[2017-06-14] MEDS ORDERED: FENTANYL CITRATE INJ 50 MCG/1 ML 2 ML VIAL ONE (10:52)
[2017-06-14] MEDS ORDERED: MIDAZOLAM HCL 5 MG/ML 1 ML VIAL ONE (10:52)
--- NOTE | 2017-06-14 10:56 | Pre Sedation Assessment ---
Pre Sedation Assessment General Date of Sedation: Jun 14, 2017. Vital Signs Past 12 Hours Date Time Temp Pulse Resp B/P (MAP) Pulse Ox O2 Delivery O2 Flow Rate FiO2 06/14/17 10:30 39 149/79 (102) 06/14/17 10:00 39 16 178/94 (122) 95 Room Air 06/14/17 08:00 36.9 42 18 165/76 (105) 96 Nasal Cannula 2.0 06/14/17 07:59 96 Nasal Cannula 2.0 06/14/17 07:00 36.9 40 17 162/78 (106) 98 Nasal Cannula 2.0 06/14/17 06:00 40 12 146/77 (100) 98 Nasal Cannula 2.0 06/14/17 05:00 40 20 167/76 (106) 97 Nasal Cannula 2.0 06/14/17 04:00 37.1 40 17 144/76 (98) 91 Room Air 06/14/17 04:00 91 Room Air 06/14/17 03:00 39 20 138/69 (92) 91 Room Air 06/14/17 02:00 40 20 152/90 (110) 95 Room Air 06/14/17 01:01 39 20 125/73 (90) 91 Room Air 06/14/17 00:04 41 161/78 (105) 92 Room Air 06/13/17 23:59 94 Room Air 06/13/17 23:01 37.0 39 25 141/84 (103) 92 Room Air Review Cardiovascular: + bradycardia Lungs: lungs clear, normal breath sounds Pre-Sedation Airway Assessment Smoking Status: Former Smoker (quit 40 years ago) Hx of Sleep Apnea: No Short Thick Neck: No Thyro-mental Distance: > 3 Finger Breadths Oral Cavity: Dentures Mallampati Classification: Class II ASA Classification: Class II NPO Status Date of Last Intake of Fluids: Jun 13, 2017 Time of Last Intake of Fluids: 2359 Date of Last Intake of Solids: Jun 13, 2017 Time of Last Intake of Solids: 2100 Procedure Planning Contraindications for Sedation: None Current Medications Reviewed: Yes Notes The planned sedation has been discussed with the patient. Informed Consent was obtained. I have identified the patient, determined the appropriateness of sedation and have assessed the patient immediately prior to the procedure. All medicine(s) and interventions are by my order.
--- NOTE | 2017-06-14 10:56 | History & Physical Bridge Note ---
H&P Re-Evaluation Bridge Note: I have examined the patient, reviewed the History & Physical and in the interval since the performance of the History & Physical I have noted the following changes of clinical significance: Pt with CHB for dual chamber pacemaker
[2017-06-14] MEDS ORDERED: BUPIVACAINE 0.5 % 5 MG/1 ML MPF 30ML VIAL ONE (10:59)
--- NOTE | 2017-06-14 11:18 | Critical Care Progress Note ---
Critical Care Progress Note Date of Service Jun 14, 2017. ICU Day ICU Day Number: [address] Ngo Subjective This AM pt denied any sob, or cp. She has been able to ambulate to bedside cammode without any sob. ON: Remained NPO for planned pacemaker today. BP stable but remained bradycardic. Objective Vitals: 36.9, HR 39, BP 162/78, RR 17; 98% on 2L (during exam) General: In NAD, awake and communicative CV: bradycardic with regular rhythm, no murmurs appreciated Pulmonary: equal aeration bilaterally, decreased BSs but CTAB GI: +BS, ND, NT Extremities: good peripheral perfusion, 3+ pretibial and pedal edema Neuro: alert and oriented x 3 Assessment & Plan 71y/oF with hx of HTN, Raynaud's, and GERD. Transferred to the ICU for close monitoring and treatment of new onset HF in the setting of heart block. Neuro: Alert and oriented. RASS score 0. CV: Heart block in the setting of new onset HF; hx of HTN, Raynaud's disease; Goal SBP < 180. Troponin neg x 1 BNP 6903 EKG: Sinus bradycardia with 1st degree AV block CXR moderate cardiomegaly On Telemetry On home Amlodipine 10mg daily for Raynaud's disease ECHO completed (see above) Plan for dual chamber pacemaker placement today by Dr. Cunningham Received a dose of Lasix 20mg IV in the ED Pulm: Concern for pulmonary edema given diminished BS in the setting of HF with significant pedal edema CXR: no acute cardiopulmonary etiology; moderate cardiomegaly, mild-mod elevation in R hemidiaphragm On NC 2L Renal: Cr 1.02 Received Lasix 20mg IV x 1 in the ED No stephan ID: On outpatient Keflex for right pedal infection (500mg QID) WBC: 4.2 and afebrile Endocrine: Accu checks per protocol, start insulin infusion for 2 blood sugards greater than 180 Heme: Stable H/H - 15.8/46.4 - no concern for bleeding Electrolytes: within normal limits this AM Received KCL 40meg x 2 Received Mag Sulf 2gm GI/Nutrition: Hx of GERD and LFT concerning for mildly elevated total and direct bili but normal AST and ALT NPO for procedure Maalox 15ml Q6H PRN IV access: peripheral only DVT prophylaxis: SCDs CCT: 45 minutes independent of any procedures Thank you for including us in the care of this patient. Please refer to Dr. Ngo's addendum for further recommendations Consults & Procedures Consultants: Cardiology Procedures: ECHO: Third degree AV block; rate 40; Flattened septum - RV pressure/volume overload with septal dyskinesis; RV severely dilated and systolic function severely reduced; interatrial septum bows toward LA (elevated RA pressure); mod tricuspid regurg; severe pulm HTN; PA systolic pressure 65 mm Hg; LV cavity mall in comparison to RV due to the severe displacement of septum; LV EF = 55-60 %. Data Medications: Current Inpatient Medications Medications (Trade) Dose Ordered Sig/Vanessa Route Start Time Stop Time Status Last Admin Dose Admin Miscellaneous Information ([facility] Protocol For Hyperglycemia) 1 ea PRN PRN N/A 06/13/17 20:15 06/15/17 20:14 Amlodipine Besylate (Norvasc Tab) 10 mg DAILY PO 06/14/17 09:00 07/14/17 08:59 06/14/17 10:02 10 MG Aspirin (Ecotrin Tab) 81 mg DAILY PO 06/14/17 09:00 07/14/17 08:59 06/14/17 10:01 81 MG Cephalexin Monohydrate (Keflex Cap) 500 mg QID PO 06/13/17 21:00 06/23/17 20:59 06/14/17 10:01 500 MG Al Hydroxide/Mg Hydroxide (Maalox Susp) 15 ml Q6H PRN PO 06/14/17 01:15 07/14/17 01:14 06/14/17 01:39 15 ML I & O: UOP 700cc reported thus far Vital Signs: Date Time Temp Pulse Resp B/P (MAP) Pulse Ox O2 Delivery O2 Flow Rate FiO2 06/14/17 10:30 39 149/79 (102) 06/14/17 10:00 39 16 178/94 (122) 95 Room Air 06/14/17 08:00 36.9 42 18 165/76 (105) 96 Nasal Cannula 2.0 06/14/17 07:59 96 Nasal Cannula 2.0 06/14/17 07:00 36.9 40 17 162/78 (106) 98 Nasal Cannula 2.0 06/14/17 06:00 40 12 146/77 (100) 98 Nasal Cannula 2.0 06/14/17 05:00 40 20 167/76 (106) 97 Nasal Cannula 2.0 06/14/17 04:00 37.1 40 17 144/76 (98) 91 Room Air 06/14/17 04:00 91 Room Air 06/14/17 03:00 39 20 138/69 (92) 91 Room Air 06/14/17 02:00 40 20 152/90 (110) 95 Room Air 06/14/17 01:01 39 20 125/73 (90) 91 Room Air 06/14/17 00:04 41 161/78 (105) 92 Room Air 06/13/17 23:59 94 Room Air 06/13/17 23:01 37.0 39 25 141/84 (103) 92 Room Air 06/13/17 22:00 41 26 160/74 (102) Room Air 06/13/17 21:53 36.8 41 20 170/92 94 Room Air 06/13/17 21:00 45 18 160/74 95 Room Air 06/13/17 19:41 49 18 174/80 95 Room Air 06/13/17 18:40 52 18 136/91 95 Room Air 06/13/17 18:03 42 06/13/17 17:54 42 22 170/95 98 Room Air 06/13/17 17:21 95 Room Air 06/13/17 14:30 36.4 109 20 189/82 95 Room Air Laboratory Results: Last 24 Hours Test 06/13/17 17:30 06/14/17 00:00 06/14/17 05:45 06/14/17 05:57 White Blood Count 4.99 K/uL 4.16 K/uL Red Blood Count 5.34 M/uL 5.43 M/uL Hemoglobin 15.5 g/dL 15.8 g/dL Hematocrit 45.9 % 46.4 % Mean Corpuscular Volume 86.0 fL 85.5 fL Mean Corpuscular Hemoglobin 29.0 pg 29.1 pg Mean Corpuscular Hemoglobin Concent 33.8 g/dl 34.1 g/dl Platelet Count 171 K/uL 170 K/uL Mean Platelet Volume 10.6 fL 11.2 fL Neutrophils (%) (Auto) 70.0 % Lymphocytes (%) (Auto) 18.6 % Monocytes (%) (Auto) 9.0 % Eosinophils (%) (Auto) 1.8 % Basophils (%) (Auto) 0.2 % Neutrophils # (Auto) 3.49 K/uL Lymphocytes # (Auto) 0.93 K/uL Monocytes # (Auto) 0.45 K/uL Eosinophils # (Auto) 0.09 K/uL Basophils # (Auto) 0.01 K/uL RDW Standard Deviation 47.2 fL 47.2 fL RDW Coefficient of Variation 15.0 % 15.2 % Immature Granulocyte % (Auto) 0.4 % Immature Granulocyte # (Auto) 0.02 K/uL Sodium Level 137 mmol/L 139 mmol/L 139 mmol/L Potassium Level 3.5 mmol/L 3.4 mmol/L 4.2 mmol/L Chloride Level 103 mmol/L 105 mmol/L 106 mmol/L Carbon Dioxide Level 26 mmol/L 25 mmol/L 24 mmol/L Anion Gap 8.0 mmol/L 9.0 mmol/L 9.0 mmol/L Blood Urea Nitrogen 17 mg/dl 16 mg/dl 17 mg/dl Creatinine 1.11 mg/dl 1.03 mg/dl 1.06 mg/dl Est Creatinine Clear Calc Drug Dose 47.2 ml/min 54.0 ml/min 51.9 ml/min Estimated GFR () 57.1 62.5 60.3 Estimated GFR (Non- 49.2 53.9 52.0 BUN/Creatinine Ratio 15.0 15.6 15.7 Random Glucose 109 mg/dl 122 mg/dl 104 mg/dl Calcium Level 9.3 mg/dl 8.7 mg/dl 8.7 mg/dl Magnesium Level 1.9 mg/dl 2.2 mg/dl 2.3 mg/dl Total Bilirubin 1.6 mg/dl 1.5 mg/dl Direct Bilirubin 0.5 mg/dl 0.4 mg/dl Aspartate Amino Transf (AST/SGOT) 27 U/L 24 U/L Alanine Aminotransferase (ALT/SGPT) 26 U/L 23 U/L Alkaline Phosphatase 73 U/L 68 U/L Troponin I 0.026 ng/ml Pro-B-Type Natriuretic Peptide 6905 pg/ml 6903 pg/ml Total Protein 7.1 gm/dl 6.6 gm/dl Albumin 3.3 gm/dl 3.2 gm/dl Lipase 184 U/L Prothrombin Time 11.6 SECONDS Prothromb Time International Ratio 1.1 Activated Partial Thromboplast Time 28.9 SECONDS Partial Thromboplastin Ratio 1.1 Estimated Average Glucose 123 mg/dl Hemoglobin A1c 5.9 % Phosphorus Level 3.6 mg/dl Thyroid Stimulating Hormone (TSH) 4.600 uIu/ml Lyme Disease IgG Antibody NEG Lyme Disease IgM Antibody NEG Bedside Glucose 107 mg/dl
--- NOTE | 2017-06-14 11:38 | Cardiology Follow-Up ---
Subjective General Date of Service: Jun 14, 2017. Chief Complaint: follow up shortness of breath, lower extremity edema, bradycardia Pt evaluation today including: conversation w/ patient, conversation w/ family , physical exam History of Present Illness The patient is a 71 year old female seen in cardiology follow-up. Overnight, she remained in high-grade AV block with a junctional escape rhythm in the 40 bpm range. She has tolerated this well. When I had last followed up on her last evening she was comfortable and speaking on her cell phone. She is in good spirits this morning and her blood pressure which was high yesterday is better controlled. Allergies Coded Allergies: Erythromycin (Unverified Allergy, Intermediate, ., 06/13/17) Penicillins (Unverified Allergy, Intermediate, ., 06/13/17) Social History Smoking Status: Former Smoker (quit 40 years ago) Hx Tobacco Use In Past Year?: No Hx Alcohol Use - Type And Amou: No Hx Substance Use - Type And Am: No Physical Exam Vital Signs Last Vital Signs Documentation Date Time Temp Pulse Resp B/P (MAP) Pulse Ox O2 Delivery O2 Flow Rate FiO2 06/14/17 11:07 06/14/17 10:30 39 06/14/17 10:00 16 95 Room Air 06/14/17 08:00 36.9 2.0 Physical Exam Constitutional: Level of Distress: NAD Head: normocephalic ENMT: TMs normal Neck: trachea midline Lungs: Auscultation: no wheezing, no rales/crackles Cardiovascular: Heart Auscultation: RRR, no murmurs Extremities: pertinent finding (2+ lower extremity edema) Neurologic: Gait & Station: pertinent finding (No focal deficits) Assessment and Plan Assessment and Plan Her echocardiogram today revealed severe right ventricular chamber dilatation including right ventricular and right atrial chamber dilatation. The interatrial septum is bowing toward the left atrium consistent with elevated right atrial pressure. Interventricular septum is displaced toward the left ventricle and therefore the left ventricle chamber is very small in comparison to the right ventricle. At least moderate tricuspid regurgitation is present with severe pulmonary hypertension in the range of 65 mmHg. Impression: 71-year-old female 1. High-grade AV block 2. Severe RV dysfunction, pulmonary hypertension 3. History of Raynaud's disease 4. Hypertension Discussion/recommendations: Patient has been seen by Dr. Zacarias of EP this am and is going to proceed for dual chamber permanent pacemaker. The patient has no documented past history of obstructive sleep apnea, but she believes that she does snore and she believes that she could very well have this. The patient does not have a long-standing history of lung disease. She is a non -smoker, and does not have a documented history of COPD or findings consistent with COPD radiographically. Differential diagnosis for her severe right ventricular chamber enlargement include cardiac shunt, however I see no gross interatrial shunt on her echocardiogram. More likely diagnoses include untreated obstructive sleep apnea, chronic thromboembolic pulmonary hypertension (as the findings of right ventricular pressure and volume overload appear to be chronic rather than acute in appearance), or perhaps systemic sclerosis. The patient does not have a past history of CREST syndrome or systemic sclerosis. She does however have a history of Raynaud's disease. When I asked her more about this, she describes that her daughter at age 49 after a long illness with apparent rheumatoid arthritis and scleroderma. She had suffered a cardiac arrest at [facility]. After permanent pacemaker is placed, I recommend we proceed with ongoing diuretic therapy as her kidney function permits. Proceed with CT scan to rule out pulmonary embolism. Will proceed with further workup after these test results are available. Laboratory Results Last 24 Hours Test 06/13/17 17:30 06/14/17 00:00 06/14/17 05:45 06/14/17 05:57 White Blood Count 4.99 K/uL 4.16 K/uL Red Blood Count 5.34 M/uL 5.43 M/uL Hemoglobin 15.5 g/dL 15.8 g/dL Hematocrit 45.9 % 46.4 % Mean Corpuscular Volume 86.0 fL 85.5 fL Mean Corpuscular Hemoglobin 29.0 pg 29.1 pg Mean Corpuscular Hemoglobin Concent 33.8 g/dl 34.1 g/dl Platelet Count 171 K/uL 170 K/uL Mean Platelet Volume 10.6 fL 11.2 fL Neutrophils (%) (Auto) 70.0 % Lymphocytes (%) (Auto) 18.6 % Monocytes (%) (Auto) 9.0 % Eosinophils (%) (Auto) 1.8 % Basophils (%) (Auto) 0.2 % Neutrophils # (Auto) 3.49 K/uL Lymphocytes # (Auto) 0.93 K/uL Monocytes # (Auto) 0.45 K/uL Eosinophils # (Auto) 0.09 K/uL Basophils # (Auto) 0.01 K/uL RDW Standard Deviation 47.2 fL 47.2 fL RDW Coefficient of Variation 15.0 % 15.2 % Immature Granulocyte % (Auto) 0.4 % Immature Granulocyte # (Auto) 0.02 K/uL Sodium Level 137 mmol/L 139 mmol/L 139 mmol/L Potassium Level 3.5 mmol/L 3.4 mmol/L 4.2 mmol/L Chloride Level 103 mmol/L 105 mmol/L 106 mmol/L Carbon Dioxide Level 26 mmol/L 25 mmol/L 24 mmol/L Anion Gap 8.0 mmol/L 9.0 mmol/L 9.0 mmol/L Blood Urea Nitrogen 17 mg/dl 16 mg/dl 17 mg/dl Creatinine 1.11 mg/dl 1.03 mg/dl 1.06 mg/dl Est Creatinine Clear Calc Drug Dose 47.2 ml/min 54.0 ml/min 51.9 ml/min Estimated GFR () 57.1 62.5 60.3 Estimated GFR (Non- 49.2 53.9 52.0 BUN/Creatinine Ratio 15.0 15.6 15.7 Random Glucose 109 mg/dl 122 mg/dl 104 mg/dl Calcium Level 9.3 mg/dl 8.7 mg/dl 8.7 mg/dl Magnesium Level 1.9 mg/dl 2.2 mg/dl 2.3 mg/dl Total Bilirubin 1.6 mg/dl 1.5 mg/dl Direct Bilirubin 0.5 mg/dl 0.4 mg/dl Aspartate Amino Transf (AST/SGOT) 27 U/L 24 U/L Alanine Aminotransferase (ALT/SGPT) 26 U/L 23 U/L Alkaline Phosphatase 73 U/L 68 U/L Troponin I 0.026 ng/ml Pro-B-Type Natriuretic Peptide 6905 pg/ml 6903 pg/ml Total Protein 7.1 gm/dl 6.6 gm/dl Albumin 3.3 gm/dl 3.2 gm/dl Lipase 184 U/L Prothrombin Time 11.6 SECONDS Prothromb Time International Ratio 1.1 Activated Partial Thromboplast Time 28.9 SECONDS Partial Thromboplastin Ratio 1.1 Estimated Average Glucose 123 mg/dl Hemoglobin A1c 5.9 % Phosphorus Level 3.6 mg/dl Thyroid Stimulating Hormone (TSH) 4.600 uIu/ml Lyme Disease IgG Antibody NEG Lyme Disease IgM Antibody NEG Bedside Glucose 107 mg/dl
--- NOTE | 2017-06-14 12:24 | [facility] Post Operative Brief Note ---
Immediate Operative Summary Operative Date Jun 14, 2017. Pre-Operative Diagnosis chb Post-Operative Diagnosis same Procedure(s) Performed dual chamber pacemaker under flouroscopic guidance Surgeon jonel mccarthy Digital Content Producer Surgeon(s) none Estimated Blood Loss 20cc Findings See Below see official report Fluids (cc crystalloids) 200cc Specimens none Drains None Anesthesia Type IV Sedat Cons RN Only Complication(s) none Disposition Accompanied Pt To Recover: yes Disposition: PCU (icu overflow)
--- NOTE | 2017-06-14 12:24 | Post Sedation Assessment ---
Post Sedation Assessment General Date of Sedation Jun 14, 2017. Vital Signs: Vital Signs Past 12 Hours Date Time Temp Pulse Resp B/P (MAP) Pulse Ox O2 Delivery O2 Flow Rate FiO2 06/14/17 11:07 06/14/17 10:30 39 149/79 (102) 06/14/17 10:00 39 16 178/94 (122) 95 Room Air 06/14/17 08:00 36.9 42 18 165/76 (105) 96 Nasal Cannula 2.0 06/14/17 07:59 96 Nasal Cannula 2.0 06/14/17 07:00 36.9 40 17 162/78 (106) 98 Nasal Cannula 2.0 06/14/17 06:00 40 12 146/77 (100) 98 Nasal Cannula 2.0 06/14/17 05:00 40 20 167/76 (106) 97 Nasal Cannula 2.0 06/14/17 04:00 37.1 40 17 144/76 (98) 91 Room Air 06/14/17 04:00 91 Room Air 06/14/17 03:00 39 20 138/69 (92) 91 Room Air 06/14/17 02:00 40 20 152/90 (110) 95 Room Air 06/14/17 01:01 39 20 125/73 (90) 91 Room Air Post Procedure Recovery Score Activity: (2) Moves 4 extremities * Respiration: (2) Deep breath/cough Circulation: (2) +/-20% PreAnes Value Consciousness: (2) Fully Awake Oxygen Saturation: (1) O2 needed for >90% Post Anesthesia Score: 9 Discharge Sedation Level of Care: Fast Track Phase II Post Sedation Plan On clinical assessment, the patient appears to have tolerated the sedation without complications. Patient is recovering as anticipated. Patient will continue to be monitored by nursing and may be discharged when sedation discharge criteria are met per below protocol. Upon Completions of procedure and additional 15 minutes continue every 5 minute vital signs and the P.A.R. score; then discharge to a Phase I or Fast Track to Phase II per the following guidelines: * Discharge Patient to appropriate Phase II area if PAR is 8 or greater or return to pre- procedure baseline. The post - procedure orders will be as directed. * If PAR score is less than 8 or not return to pre-procedure baseline then patient will follow Phase I monitoring till PAR is reached for Phase II. The Phase I may be done in procedure room or may call to secure a Phase I area. * If naloxone or flumazenil are used for reversal, hold in Phase I for an additional 60 -120 minutes before discharge to Phase II. Please call the Sedation Physician to re-evaluate and complete post-note for discharge to Phase II area. Do NOT discharge from procedure sedation or Phase 1 until post- sedation evaluation note is complete by procedure /sedation MD Sedation Discharge Instructions to be given to the patient at discharge to home.
[2017-06-14] MEDS ORDERED: ACETAMINOPHEN 325 MG TAB PO PRN (12:30)
[2017-06-14] MEDS: OXYCODONE/ACETAMINOPHEN 5-325 TAB PO PRN (15:45)
--- NOTE | 2017-06-14 18:21 | OPERATIVE REPORT ---
DATE OF OPERATION: 06/14/2017 PREOPERATIVE DIAGNOSIS: Complete heart block. POSTOPERATIVE DIAGNOSIS: Same. PROCEDURE: Dual chamber rate responsive permanent pacemaker under fluoroscopic guidance. SURGEON: Lulu Zacarias DO REGIONAL SERVICE MANAGER: None. ANESTHESIA: Monitored conscious sedation administered under my supervision by Melvina Craig. A total of 4 mg of Versed and 100 mcg of fentanyl. Start time 1108 hours and end time 1219 hours. IV FLUIDS: 200 mL. ANTIBIOTICS: 600 mg of clindamycin. BLOOD LOSS: Less than 20 mL. COMPLICATIONS: None. CONDITION: Stable. URINE OUTPUT: Not applicable. SPECIMENS: None. FINDINGS: See below. DRAINS: None. INDICATIONS: This is a 71-year-old female with a past medical history of Raynaud's syndrome. She was admitted to the hospital with acute heart failure and found to be in a complete heart block. An echocardiogram done prior to the procedure did show that she has hypokinesis of the right ventricle and the right atrium and the right ventricle are severely hypokinetic and there is right ventricular volume and pressure overload. Possible etiologies, obstructive sleep apnea, untreated versus maybe some type of scleroderma as she has Raynaud's. Due to her complete heart block, she was recommended a pacemaker. CONSENT: Consent was obtained prior to the patient going into the operating room. The patient was informed of risks, benefits, and alternatives to the procedure. Risks include, but not limited to sudden cardiac , cardiac arrhythmias, cerebrovascular accident, myocardial infarction, injury to the blood vessels, chamber of the heart, lungs, bleeding and infection. The patient understood these risks and agreed to the procedure as planned. Informed consent was obtained. DESCRIPTION OF THE PROCEDURE: The patient was brought into the electrophysiology lab in a fasting state. She was connected to the continuous lunchroom monitor. A timeout was performed to ensure the patient identity and procedure correctly. The patient was prepped and draped over the left infraclavicular space in normal surgical standard fashion. Moderate conscious sedation was given throughout the procedure for the patient's comfort level. [place] precautions were maintained throughout the procedure. 20 mL of 1% lidocaine and bupivacaine mixture were given in the left deltopectoral groove. Incision was made in left deltopectoral groove. Blunt dissection was performed down to identify the cephalic vein. Cephalic was identified and isolated using 0 silk ties. The vein was nicked with an 11 blade and a guidewire was inserted without resistance. The 8-Lebanese sheath was inserted over the guidewire without any resistance. The dilator was removed and a second guidewire was inserted through the sheath to allow for retained venous access. The sheath was removed, flushed and dilator reinserted over it and then reinserted over one of the guidewires. The guidewire and dilator were removed. The right ventricular pacing lead was then advanced into right ventricle and positioned into right ventricular apex under fluoroscopic guidance. There was adequate pacing and sensing thresholds and no diaphragmatic stimulation at high outflow pacing. The 8-Lebanese sheath was peeled away and lead was fixated to pectoralis muscle using 0 silk suture. A 7-Lebanese sheath was inserted over the retained guidewire without resistance. The guidewire and dilator were removed. A right atrial pacing lead was then advanced into right atrium and positioned into right atrial appendage under fluoroscopic guidance. There was adequate pacing and sensing thresholds and no diaphragmatic stimulation at high outflow pacing. The 7-Lebanese sheath was peeled away and lead was fixated to pectoralis muscle using 0 silk suture. A purse string stitch was placed around the venous puncture site as her venous pressure was elevated and there was some backbleeding. Additional 1% lidocaine and bupivacaine mixture were given in the pectoralis fascia. Then, using blunt dissection over the pectoralis muscle within the fascia, a pacemaker pocket was created. Pocket was flushed with copious amounts of bacitracin saline wash and inspected for hemostasis. The pulse generator was attached to leads, making sure that the pins were in appropriate position, passed the set screws and the set screws were all tightened. The pulse generator was then placed in the pocket, making sure that the leads were lying flat beneath the device. A stay stitch using 0 silk suture was used to secure the device to the pectoralis muscle. The incision was closed in a 3-layer fashion using 2-0 Vicryl interrupted suture followed by 3-0 Vicryl interrupted suture followed by a 4-0 Monocryl running stitch and Dermabond applied. EQUIPMENT: 1. Pulse generator, [employer] [place]ola XT DR MRI SureScan W1 DR01, serial #[id number]. 2. Right atrial lead, Medtronic 5076-52 cm, serial #[id number]. 3. Right ventricular lead, Medtronic 5076-58 cm, serial #[id number]. INTRAOPERATIVE TESTIN. Right atrial lead: P wave 1 millivolt, impedance 575 ohms, threshold 0.5 volts at 0.8 milliamps. 2. Right ventricular lead: R wave 3.1 millivolts, impedance 768 ohms, threshold 0.3 volts at 0.4 milliamps. FINAL MEASUREMENTS THROUGH THE DEVICE: 1. Right atrial lead: P wave 1.1 millivolts, impedance 494 ohms, threshold 0.5 volts at 0.4 milliseconds. 2. Right ventricular lead: No R waves as the patient is now dependently paced, impedance 627 ohms, threshold 0.5 volts at 0.4 milliseconds. FINAL PARAMETERS: DDD overnight. Then, we will try to set it to MVP-R 60/120. Right atrial amplitude 3.5 volts, pulse width 0.4 milliseconds, sensitivity 0.3 millivolts. Right ventricular amplitude 5 volts, pulse width 0.4 milliseconds, and sensitivity 0.9 millivolts. IMPRESSION: Successful implantation of a dual chamber rate responsive permanent pacemaker under fluoroscopic guidance secondary to complete heart block. PLAN: Monitor the patient overnight, 12-lead ECG, and chest x-ray. She cannot lift the left elbow or left shoulder for 1 month. She can shower in 2 days. She cannot lift more than 10 pounds with the left arm for 2 weeks. She should follow up in our [facility] device clinic in 1 week for a device and wound check. I attest to the content of the Intraoperative Record and any orders documented therein. Any exceptions are noted below. LUIS
--- NOTE | 2017-06-14 18:22 | Progress Note ---
Subjective Date of Service: Jun 14, 2017. Subjective Pt evaluation today including: conversation w/ patient, conversation w/ family , physical exam, lab review, review of studies, review of inpatient medication list Saw/examined the patient in room 112 pacemaker placed earlier today currently denies any symptoms no chest pain/palpitations/shortness of breath good PO intake, no nausea/vomiting/diarrhea, no fevers/chills Review of Systems Constitutional: No fever, No chills Respiratory: No cough, No sputum, No wheezing, No shortness of breath, No dyspnea on exertion, No dyspnea at rest, No hemoptysis Cardiac: No chest pain, No edema, No palpitations Female : No dysuria, No urinary frequency Heme: No abnormal bleeding/bruising Medications Current Inpatient Medications Medications (Trade) Dose Ordered Sig/Vanessa Route Start Time Stop Time Status Last Admin Dose Admin Miscellaneous Information (Icu Protocol For Hyperglycemia) 1 ea PRN PRN N/A 06/13/17 20:15 06/15/17 20:14 Amlodipine Besylate (Norvasc Tab) 10 mg DAILY PO 06/14/17 09:00 07/14/17 08:59 06/14/17 10:02 10 MG Aspirin (Ecotrin Tab) 81 mg DAILY PO 06/14/17 09:00 07/14/17 08:59 06/14/17 10:01 81 MG Cephalexin Monohydrate (Keflex Cap) 500 mg QID PO 06/13/17 21:00 06/23/17 20:59 06/14/17 16:53 500 MG Al Hydroxide/Mg Hydroxide (Maalox Susp) 15 ml Q6H PRN PO 06/14/17 01:15 07/14/17 01:14 06/14/17 01:39 15 ML Oxycodone/ Acetaminophen (Percocet 5-325mg Tab) 1 tab for pain scale 4-6 2 t... Q6H PRN PO 06/14/17 12:30 06/28/17 12:29 06/14/17 15:45 1 TAB Acetaminophen (Tylenol Tab) 650 mg Q4H PRN PO 06/14/17 12:30 07/14/17 12:29 Objective Vital Signs Date Time Temp Pulse Resp B/P (MAP) Pulse Ox O2 Delivery O2 Flow Rate FiO2 06/14/17 16:00 36.8 61 20 135/77 (96) 98 Nasal Cannula 2.0 06/14/17 16:00 98 Nasal Cannula 2.0 06/14/17 14:00 66 25 145/85 (105) 06/14/17 13:30 117 134/82 (99) 93 Nasal Cannula 4.0 06/14/17 13:15 64 19 141/77 (98) 06/14/17 13:00 67 24 135/77 (96) 93 Nasal Cannula 4.0 06/14/17 12:58 95 Nasal Cannula 4.0 06/14/17 12:45 64 20 130/81 (97) 93 Nasal Cannula 4.0 06/14/17 12:42 36.8 65 16 143/92 (109) 95 Nasal Cannula 4.0 06/14/17 12:34 65 18 144/80 (101) 96 Nasal Cannula 2 06/14/17 12:19 67 18 154/85 (108) 95 Mask 6 06/14/17 11:07 06/14/17 10:30 39 149/79 (102) 06/14/17 10:00 39 16 178/94 (122) 95 Room Air 06/14/17 08:00 36.9 42 18 165/76 (105) 96 Nasal Cannula 2.0 06/14/17 07:59 96 Nasal Cannula 2.0 06/14/17 07:00 36.9 40 17 162/78 (106) 98 Nasal Cannula 2.0 06/14/17 06:00 40 12 146/77 (100) 98 Nasal Cannula 2.0 06/14/17 05:00 40 20 167/76 (106) 97 Nasal Cannula 2.0 06/14/17 04:00 37.1 40 17 144/76 (98) 91 Room Air 06/14/17 04:00 91 Room Air 06/14/17 03:00 39 20 138/69 (92) 91 Room Air 06/14/17 02:00 40 20 152/90 (110) 95 Room Air 06/14/17 01:01 39 20 125/73 (90) 91 Room Air 06/14/17 00:04 41 161/78 (105) 92 Room Air 06/13/17 23:59 94 Room Air 06/13/17 23:01 37.0 39 25 141/84 (103) 92 Room Air 06/13/17 22:00 41 26 160/74 (102) Room Air 06/13/17 21:53 36.8 41 20 170/92 94 Room Air 06/13/17 21:00 45 18 160/74 95 Room Air 06/13/17 19:41 49 18 174/80 95 Room Air 06/13/17 18:40 52 18 136/91 95 Room Air Physical Exam General Appearance: no apparent distress Respiratory/Chest: chest non-tender, lungs clear, normal breath sounds, no respiratory distress, no accessory muscle use Cardiovascular: regular rate, rhythm, no murmur Extremities: + pedal edema, + swelling (+2 pitting edema b/l LE) Neurologic/Psychiatric: no motor/sensory deficits, alert, normal mood/affect Laboratory Results Last 24 Hours Test 06/14/17 00:00 06/14/17 05:45 06/14/17 05:57 06/14/17 14:21 Sodium Level 139 mmol/L 139 mmol/L Potassium Level 3.4 mmol/L 4.2 mmol/L Chloride Level 105 mmol/L 106 mmol/L Carbon Dioxide Level 25 mmol/L 24 mmol/L Anion Gap 9.0 mmol/L 9.0 mmol/L Blood Urea Nitrogen 16 mg/dl 17 mg/dl Creatinine 1.03 mg/dl 1.06 mg/dl Est Creatinine Clear Calc Drug Dose 54.0 ml/min 51.9 ml/min Estimated GFR () 62.5 60.3 Estimated GFR (Non- 53.9 52.0 BUN/Creatinine Ratio 15.6 15.7 Random Glucose 122 mg/dl 104 mg/dl Calcium Level 8.7 mg/dl 8.7 mg/dl Magnesium Level 2.2 mg/dl 2.3 mg/dl White Blood Count 4.16 K/uL Red Blood Count 5.43 M/uL Hemoglobin 15.8 g/dL Hematocrit 46.4 % Mean Corpuscular Volume 85.5 fL Mean Corpuscular Hemoglobin 29.1 pg Mean Corpuscular Hemoglobin Concent 34.1 g/dl RDW Standard Deviation 47.2 fL RDW Coefficient of Variation 15.2 % Platelet Count 170 K/uL Mean Platelet Volume 11.2 fL Prothrombin Time 11.6 SECONDS Prothromb Time International Ratio 1.1 Activated Partial Thromboplast Time 28.9 SECONDS Partial Thromboplastin Ratio 1.1 Estimated Average Glucose 123 mg/dl Hemoglobin A1c 5.9 % Phosphorus Level 3.6 mg/dl Total Bilirubin 1.5 mg/dl Direct Bilirubin 0.4 mg/dl Aspartate Amino Transf (AST/SGOT) 24 U/L Alanine Aminotransferase (ALT/SGPT) 23 U/L Alkaline Phosphatase 68 U/L Pro-B-Type Natriuretic Peptide 6903 pg/ml Total Protein 6.6 gm/dl Albumin 3.2 gm/dl Thyroid Stimulating Hormone (TSH) 4.600 uIu/ml Lyme Disease IgG Antibody NEG Lyme Disease IgM Antibody NEG Bedside Glucose 107 mg/dl Assessment and Plan Complete Heart Block * appreciate cardiology and EP input * s/p permanent pacer placement * currently pacing well * denies any symptoms * transfer from ICU to tele Lower Extremity Edema R foot Cellulitis * resting echo pending * possibly due to complete heart block * received one dose of IV Lasix * continue Keflex HTN * BP intermittently elevated, will continue amlodipine * Hold Maxzide for now DVT ppx * SCDs FULL CODE
[2017-06-15] VITALS (11 sets, daily range): BP systolic 113–159; BP diastolic 64–93; PULSE 62–96; TEMP 36.4–36.9; O2SAT 91–98
[2017-06-15 06:12] LABS: HEMATOCRIT 43.6 % (37-47); HEMOGLOBIN 15.3 g/dL (12.0-16.0); MEAN CELL VOLUME 86.3 fL (80-100); MEAN CORPUSCULAR HEMOGLOBIN 30.3 pg (25-34); MEAN CORPUSCULAR HGB CONC 35.1 g/dl (32-36); MEAN PLATELET VOLUME 9.9 fL (7.4-10.4); PLATELET COUNT 147 K/uL (130-400); RED CELL DISTRIBUTION WIDTH CV 15.1 % (11.5-14.5); RED CELL DISTRIBUTION WIDTH SD 48.1 fL (36.4-46.3); WHITE BLOOD COUNT 4.16 K/uL (4.8-10.8)
--- NOTE | 2017-06-15 06:33 | DIAGNOSTIC IMAGING REPORT ---
CHEST 2 VIEWS ROUTINE CLINICAL HISTORY: Pacemaker insertion. COMPARISON STUDY: Chest radiograph June 13, 2017. FINDINGS: No pneumothorax is identified status post placement of a dual lead left subclavian pacemaker. Lead tips project over the right atrial appendage and right ventricle. Moderate cardiomegaly is noted without evidence for pulmonary edema. There is no consolidation. There is mild to moderate elevation of the right hemidiaphragm. IMPRESSION: No pneumothorax following placement of a dual lead left subclavian pacemaker. Electronically signed by: Samuel Torres M.D. 06/15/2017 6:32 AM Dictated Date/Time: 06/15/2017 6:31 AM
[2017-06-15 06:43] LABS: CALCIUM 8.3 mg/dl (8.5-10.1); CREATININE 1.2 mg/dl (0.60-1.20); POTASSIUM 4.2 mmol/L (3.5-5.1)
[2017-06-15] MEDS: CEPHALEXIN MONOHYDRATE 500 MG CAP PO SCH ×4 (07:34→20:47)
[2017-06-15] MEDS: ASPIRIN 81 MG ECTAB PO SCH (07:34)
[2017-06-15] MEDS: AMLODIPINE BESYLATE 5 MG TAB PO SCH (07:35)
--- NOTE | 2017-06-15 07:49 | Cardiology Follow-Up ---
Subjective General Date of Service: Jun 15, 2017. Chief Complaint: follow up shortness of breath, lower extremity edema, bradycardia Pt evaluation today including: conversation w/ patient, physical exam History of Present Illness The patient is a 71 year old female seen in follow up. Patient feels well this am. She is sitting up in bed and eating breakfast. CXR reveals no PTX and appropriate lead placement. Telemetry and EKG reveals AV sequential paced rhythm in the 70 bpm range. Allergies Coded Allergies: Erythromycin (Unverified Allergy, Intermediate, ., 06/13/17) Penicillins (Unverified Allergy, Intermediate, ., 06/13/17) Social History Smoking Status: Former Smoker (quit 40 years ago) Hx Tobacco Use In Past Year?: No Hx Alcohol Use - Type And Amou: No Hx Substance Use - Type And Am: No Physical Exam Vital Signs Last Vital Signs Documentation Date Time Temp Pulse Resp B/P (MAP) Pulse Ox O2 Delivery O2 Flow Rate FiO2 06/15/17 04:00 95 Nasal Cannula 2.0 06/15/17 03:58 36.5 65 18 113/64 (80) Physical Exam Constitutional: Level of Distress: NAD Head: normocephalic ENMT: TMs normal Neck: trachea midline Lungs: Auscultation: no wheezing, no rales/crackles Cardiovascular: Heart Auscultation: RRR, no murmurs, pertinent finding (left infraclavicular pacemaker incision without drainage, mild erythema) Extremities: pertinent finding (1-2+ edema, trending toward improvement ) Neurologic: Gait & Station: pertinent finding (No focal deficits) Assessment and Plan Assessment and Plan Echocardiogram this admission (no past study available for comparison)= severe right ventricular chamber dilatation including right ventricular and right atrial chamber dilatation. The interatrial septum is bowing toward the left atrium consistent with elevated right atrial pressure. Interventricular septum is displaced toward the left ventricle and therefore the left ventricle chamber is very small in comparison to the right ventricle. At least moderate tricuspid regurgitation is present with severe pulmonary hypertension in the range of 65 mmHg. Impression: 71-year-old female 1. High-grade AV block, junctional escape in the 40s, 2 weeks of symptoms prior to presentation, therefore underwent dual chamber Medtronic PPM 06/14 2. Severe RV dysfunction, pulmonary hypertension 3. History of Raynaud's disease 4. Hypertension 5. family hx of systemic sclerosis, daughter, after cardiac arrest at age 49 Discussion/recommendations: Patient improved clinically. She is telemetry status , but still in ICU 112 as telemetry overflow. Pacer check reveals normal function (CHB underneath, pacer dependent). Differential diagnosis for her severe right ventricular chamber enlargement include cardiac shunt, however I see no gross interatrial shunt on her echocardiogram. More likely diagnoses include untreated obstructive sleep apnea, chronic thromboembolic pulmonary hypertension (as the findings of right ventricular pressure and volume overload appear to be chronic rather than acute in appearance), or perhaps systemic sclerosis. Proceed with CT chest to evaluate for PE or chronic thromboembolic pulmonary HTN. Although she has LE edema, continue amlodipine for HTN and Raynauds. The edema is new over last 2 weeks and she has been on amlodipine 10 mg for years so I do not think this medication is the cause. Will need loop diuretic mcfp. Other considerations include sildenafil or other agent, oxygen. Will likely refer to P HTN specialty clinic at [facility] [place] once work up more complete. Laboratory Results Last 24 Hours Test 06/14/17 14:21 06/15/17 05:59 White Blood Count 4.16 K/uL Red Blood Count 5.05 M/uL Hemoglobin 15.3 g/dL Hematocrit 43.6 % Mean Corpuscular Volume 86.3 fL Mean Corpuscular Hemoglobin 30.3 pg Mean Corpuscular Hemoglobin Concent 35.1 g/dl RDW Standard Deviation 48.1 fL RDW Coefficient of Variation 15.1 % Platelet Count 147 K/uL Mean Platelet Volume 9.9 fL Sodium Level 138 mmol/L Potassium Level 4.2 mmol/L Chloride Level 106 mmol/L Carbon Dioxide Level 25 mmol/L Anion Gap 8.0 mmol/L Blood Urea Nitrogen 20 mg/dl Creatinine 1.20 mg/dl Est Creatinine Clear Calc Drug Dose 45.8 ml/min Estimated GFR () 51.9 Estimated GFR (Non- 44.8 BUN/Creatinine Ratio 16.9 Random Glucose 102 mg/dl Calcium Level 8.3 mg/dl
[2017-06-15] MEDS ORDERED: OPTIRAY 320 IV PRN (10:45)
--- NOTE | 2017-06-15 10:58 | DIAGNOSTIC IMAGING REPORT ---
(CHEST FOR PE) ANGIO WITH CLINICAL HISTORY: 71 years-old Female presenting with ^pulmonary embolism, or chronic thromboembolic pulmonary HTN ^new pulmonary hypertension, right ventricular dysfunction. TECHNIQUE: Multidetector CT angiography of the chest was performed after administration of intravenous contrast. 3-D volumetric and/or maximum intensity projection (MIP) images were subsequently reconstructed for review. IV contrast: 93 mL of Optiray 320. A dose lowering technique was used consistent with the principles of ALARA (as low as reasonably achievable). COMPARISON: Chest x-ray from earlier the same day. CT DOSE (mGy.cm): The estimated cumulative dose is 611.44 mGy.cm. FINDINGS: Sports Anchor topogram: Left subclavian 2-lead pacer. Cardiomegaly. Pulmonary vasculature: The study is adequate for assessment of the pulmonary vascular tree. No filling defect within the pulmonary arteries to suggest embolus. Main pulmonary artery enlarged measuring 3.7 cm in transverse dimension. No flattening of the interventricular septum. No intracardiac filling defect. Reflux of contrast into the intrahepatic IVC. Remaining chest: On soft tissue windows, subcutaneous fat infiltration and soft tissue emphysema along the left anterior chest wall at the site of the left subclavian pacer. 2 leads noted, one to the right atrial appendage and right ventricular apex. No axillary, supraclavicular, hilar, or mediastinal lymphadenopathy. Atherosclerosis of the aorta. Multichamber enlargement of the heart. Coronary artery calcification. No pericardial or pleural effusion. Extensive infiltration along the left posterior lateral chest wall and mild diffuse body wall edema. On lung windows, trace apical emphysema. Mild interlobular septal thickening and patchy minimal groundglass opacity diffusely. Central airways patent. On bone windows, degenerative changes of the spine. IMPRESSION: 1. No evidence of pulmonary embolus. 2. Trace emphysema. 3. Subtle findings of minimal diffuse patchy groundglass opacity and interlobular septal thickening could suggest congestive change/developing pulmonary edema. 4. Cardiomegaly. 5. Enlargement of the main pulmonary artery suggest pulmonary hypertension. Electronically signed by: Scot Silva M.D. 06/15/2017 10:57 AM Dictated Date/Time: 06/15/2017 10:43 AM
--- NOTE | 2017-06-15 13:21 | Progress Note ---
Subjective Date of Service: Jun 15, 2017. Subjective Pt evaluation today including: conversation w/ patient, conversation w/ family , physical exam, lab review, review of studies, conversation w/ instructional systems design consultant, review of inpatient medication list Saw/examined the patient in room 112 pacemaker inserted yesterday no dyspnea on exertion or dizziness +edema persists Review of Systems Constitutional: No fever, No chills Respiratory: No cough, No sputum, No wheezing, No shortness of breath, No dyspnea on exertion Cardiac: + edema, No chest pain, No palpitations Abdomen: No pain, No nausea, No vomiting, No diarrhea, No constipation, No GI bleeding Medications Current Inpatient Medications Medications (Trade) Dose Ordered Sig/Vanessa Route Start Time Stop Time Status Last Admin Dose Admin Miscellaneous Information (Icu Protocol For Hyperglycemia) 1 ea PRN PRN N/A 06/13/17 20:15 06/15/17 20:14 Amlodipine Besylate (Norvasc Tab) 10 mg DAILY PO 06/14/17 09:00 07/14/17 08:59 06/15/17 07:35 10 MG Aspirin (Ecotrin Tab) 81 mg DAILY PO 06/14/17 09:00 07/14/17 08:59 06/15/17 07:34 81 MG Cephalexin Monohydrate (Keflex Cap) 500 mg QID PO 06/13/17 21:00 06/23/17 20:59 06/15/17 12:43 500 MG Al Hydroxide/Mg Hydroxide (Maalox Susp) 15 ml Q6H PRN PO 06/14/17 01:15 07/14/17 01:14 06/14/17 01:39 15 ML Oxycodone/ Acetaminophen (Percocet 5-325mg Tab) 1 tab for pain scale 4-6 2 t... Q6H PRN PO 06/14/17 12:30 06/28/17 12:29 06/15/17 00:00 2 TAB Acetaminophen (Tylenol Tab) 650 mg Q4H PRN PO 06/14/17 12:30 07/14/17 12:29 06/15/17 12:47 650 MG Ioversol (Optiray 320) 100 ml UD PRN IV 06/15/17 10:45 06/19/17 10:44 Objective Vital Signs Date Time Temp Pulse Resp B/P (MAP) Pulse Ox O2 Delivery O2 Flow Rate FiO2 3/15/18 12:00 Room Air 06/15/17 12:00 36.5 71 20 141/85 (103) Room Air 06/15/17 08:00 93 Room Air 06/15/17 08:00 36.9 68 18 147/93 (111) 93 Room Air 06/15/17 04:00 95 Nasal Cannula 2.0 06/15/17 03:58 36.5 65 18 113/64 (80) 95 Nasal Cannula 2.0 06/14/17 23:59 36.8 64 20 157/90 (112) 95 Nasal Cannula 2.0 64 06/14/17 23:59 95 Nasal Cannula 2.0 06/14/17 20:00 92 Room Air 06/14/17 20:00 36.6 63 20 140/85 (103) 92 Room Air 06/14/17 16:00 36.8 61 20 135/77 (96) 98 Nasal Cannula 2.0 06/14/17 16:00 98 Nasal Cannula 2.0 06/14/17 14:00 66 25 145/85 (105) 06/14/17 13:30 117 134/82 (99) 93 Nasal Cannula 4.0 06/14/17 13:15 64 19 141/77 (98) Physical Exam General Appearance: no apparent distress Respiratory/Chest: chest non-tender, lungs clear, normal breath sounds, no respiratory distress, no accessory muscle use Cardiovascular: regular rate, rhythm, no murmur, + pertinent finding ( pacemaker inserted to L chest wall) Extremities: + pedal edema, + swelling Laboratory Results Last 24 Hours Test 06/14/17 14:21 06/15/17 05:59 White Blood Count 4.16 K/uL Red Blood Count 5.05 M/uL Hemoglobin 15.3 g/dL Hematocrit 43.6 % Mean Corpuscular Volume 86.3 fL Mean Corpuscular Hemoglobin 30.3 pg Mean Corpuscular Hemoglobin Concent 35.1 g/dl RDW Standard Deviation 48.1 fL RDW Coefficient of Variation 15.1 % Platelet Count 147 K/uL Mean Platelet Volume 9.9 fL Sodium Level 138 mmol/L Potassium Level 4.2 mmol/L Chloride Level 106 mmol/L Carbon Dioxide Level 25 mmol/L Anion Gap 8.0 mmol/L Blood Urea Nitrogen 20 mg/dl Creatinine 1.20 mg/dl Est Creatinine Clear Calc Drug Dose 45.8 ml/min Estimated GFR () 51.9 Estimated GFR (Non- 44.8 BUN/Creatinine Ratio 16.9 Random Glucose 102 mg/dl Calcium Level 8.3 mg/dl Assessment and Plan Complete Heart Block * appreciate cardiology and EP input * s/p permanent pacer placement * currently pacing well * denies any symptoms * transfer from ICU to tele RV Systolic Dysfunction Lower Extremity Edema 06/15 * appreciate cardiology input * CT chest done, PE ruled out * will monitor overnight, check kidney function in AM * if doing well, can d/c with Lasix * outpatient sleep study 06/14 * resting echo pending * possibly due to complete heart block * received one dose of IV Lasix * continue Keflex HTN * BP intermittently elevated, will continue amlodipine * Hold Maxzide for now DVT ppx * SCDs FULL CODE
[2017-06-15] MEDS: OXYCODONE/ACETAMINOPHEN 5-325 TAB PO PRN ×2 (19:25)
[2017-06-16] VITALS (12 sets, daily range): BP systolic 92–138; BP diastolic 74–85; PULSE 60–83; TEMP 36.4–37; O2SAT 91–95
[2017-06-16] MEDS: OXYCODONE/ACETAMINOPHEN 5-325 TAB PO PRN (03:12)
[2017-06-16 06:16] LABS: HEMATOCRIT 43.3 % (37-47); HEMOGLOBIN 14.5 g/dL (12.0-16.0); MEAN CELL VOLUME 85.9 fL (80-100); MEAN CORPUSCULAR HEMOGLOBIN 28.8 pg (25-34); MEAN CORPUSCULAR HGB CONC 33.5 g/dl (32-36); MEAN PLATELET VOLUME 10.6 fL (7.4-10.4); PLATELET COUNT 149 K/uL (130-400); RED CELL DISTRIBUTION WIDTH CV 15.1 % (11.5-14.5); RED CELL DISTRIBUTION WIDTH SD 47.3 fL (36.4-46.3); WHITE BLOOD COUNT 4.86 K/uL (4.8-10.8)
[2017-06-16 06:47] LABS: CALCIUM 8.2 mg/dl (8.5-10.1); CREATININE 0.99 mg/dl (0.60-1.20); POTASSIUM 4.1 mmol/L (3.5-5.1)
[2017-06-16] MEDS ORDERED: ONDANSETRON INJ 2 MG/ML 2 ML VIAL IV STA ×2 (07:29→12:27)
[2017-06-16] MEDS ORDERED: SOTALOL HCL 80 MG TAB PO ONE (07:30)
[2017-06-16] MEDS ORDERED: FUROSEMIDE INJ 40 MG in SYRINGE 0 ML IV SCH (07:30)
[2017-06-16] MEDS ORDERED: ONDANSETRON INJ 2 MG/ML 2 ML VIAL ONE ×2 (07:31→12:29)
--- NOTE | 2017-06-16 07:33 | Cardiology Follow-Up ---
Subjective General Date of Service: Jun 16, 2017. Chief Complaint: follow up shortness of breath, lower extremity edema, bradycardia Pt evaluation today including: conversation w/ patient, physical exam History of Present Illness The patient is a 71 year old female seen in follow up. She is now post procedure 2 s/p PPM. Patient feeling nauseous this am. Acute rhythm change noted this am from SR and V pacing to atrial flutter on telemetry with apparent AV radha, ventricular pacing at [address] negative for PE. Pulm artery dilatation present consistent with chronic pulmonary HTN. Allergies Coded Allergies: Erythromycin (Unverified Allergy, Intermediate, ., 06/13/17) Penicillins (Unverified Allergy, Intermediate, ., 06/13/17) Social History Smoking Status: Former Smoker (quit 40 years ago) Hx Tobacco Use In Past Year?: No Hx Alcohol Use - Type And Amou: No Hx Substance Use - Type And Am: No Physical Exam Vital Signs Last Vital Signs Documentation Date Time Temp Pulse Resp B/P (MAP) Pulse Ox O2 Delivery O2 Flow Rate FiO2 06/16/17 04:00 91 Room Air 06/16/17 03:15 36.9 82 18 138/85 (102) 06/15/17 04:00 2.0 Physical Exam Constitutional: Level of Distress: acutely ill Head: normocephalic ENMT: TMs normal Neck: trachea midline Lungs: Auscultation: no wheezing, no rales/crackles Cardiovascular: Heart Auscultation: RRR, no murmurs, pertinent finding (left infraclavicular pacemaker incision without drainage, mild erythema) Extremities: pertinent finding (1-2+ edema) Neurologic: Gait & Station: pertinent finding (No focal deficits) Assessment and Plan Assessment and Plan Echocardiogram this admission (no past study available for comparison)= severe right ventricular chamber dilatation including right ventricular and right atrial chamber dilatation. The interatrial septum is bowing toward the left atrium consistent with elevated right atrial pressure. Interventricular septum is displaced toward the left ventricle and therefore the left ventricle chamber is very small in comparison to the right ventricle. At least moderate tricuspid regurgitation is present with severe pulmonary hypertension in the range of 65 mmHg. Impression: 71-year-old female 1. High-grade AV block, junctional escape in the 40s, 2 weeks of symptoms prior to presentation, therefore underwent dual chamber [employer] PPM 06/14 -06/16/17 new atrial flutter with controlled ventricular rate -nausea 2. Severe RV dysfunction, pulmonary hypertension 3. History of Raynaud's disease 4. Hypertension 5. family hx of systemic sclerosis, daughter, after cardiac arrest at age 49 Discussion/recommendations: Zofran 4 mg IV. Heparin gtt. Furosemide 40 mg IV . add Sotalol. Check EKG and interrogate PPM. Laboratory Results Last 24 Hours Test 06/16/17 06:07 White Blood Count 4.86 K/uL Red Blood Count 5.04 M/uL Hemoglobin 14.5 g/dL Hematocrit 43.3 % Mean Corpuscular Volume 85.9 fL Mean Corpuscular Hemoglobin 28.8 pg Mean Corpuscular Hemoglobin Concent 33.5 g/dl RDW Standard Deviation 47.3 fL RDW Coefficient of Variation 15.1 % Platelet Count 149 K/uL Mean Platelet Volume 10.6 fL Sodium Level 136 mmol/L Potassium Level 4.1 mmol/L Chloride Level 104 mmol/L Carbon Dioxide Level 24 mmol/L Anion Gap 8.0 mmol/L Blood Urea Nitrogen 16 mg/dl Creatinine 0.99 mg/dl Est Creatinine Clear Calc Drug Dose 56.1 ml/min Estimated GFR () 65.5 Estimated GFR (Non- 56.5 BUN/Creatinine Ratio 16.0 Random Glucose 102 mg/dl Calcium Level 8.2 mg/dl
[2017-06-16 08:10] LABS: BASO % 0.4 %; BASO ABS # 0.02 K/uL (0-0.2); HEMATOCRIT 46.3 % (37-47); HEMOGLOBIN 15.7 g/dL (12.0-16.0); IG# 0.02 K/uL (0.00-0.02); LYMPH % 23.2 %; LYMPH ABS # 1.19 K/uL (1.2-3.4); MEAN CELL VOLUME 86.5 fL (80-100); MEAN CORPUSCULAR HEMOGLOBIN 29.3 pg (25-34); MEAN PLATELET VOLUME 10.4 fL (7.4-10.4); MONO ABS # 0.36 K/uL (0.11-0.59); NEUT ABS # 3.43 K/uL (1.4-6.5); PLATELET COUNT 161 K/uL (130-400); RED CELL DISTRIBUTION WIDTH CV 15.1 % (11.5-14.5); RED CELL DISTRIBUTION WIDTH SD 47.5 fL (36.4-46.3); WHITE BLOOD COUNT 5.12 K/uL (4.8-10.8)
[2017-06-16 08:15] LABS: MEAN CORPUSCULAR HGB CONC 33.9 g/dl (32-36)
[2017-06-16 08:19] LABS: INR 1.1 (0.9-1.1); PTT PATIENT 28.5 SECONDS (21.0-31.0)
[2017-06-16] MEDS ORDERED: HEPARIN IV BOLUS 6,000 UNIT in SYRINGE 0 ML IV ONE (09:00)
[2017-06-16] MEDS: CEPHALEXIN MONOHYDRATE 500 MG CAP PO SCH ×4 (09:18→21:23)
[2017-06-16] MEDS: ASPIRIN 81 MG ECTAB PO SCH (09:23)
[2017-06-16] MEDS: AMLODIPINE BESYLATE 5 MG TAB PO SCH (09:24)
[2017-06-16] MEDS: HEPARIN 25,000 UNIT/500ML D5W 500 ML IV SCH ×2 (09:33→17:45)
--- NOTE | 2017-06-16 10:06 | Cardiology Progress Note ---
Cardiology Progress Note Date of Service Jun 16, 2017. Cardiology Progress Note Patient reassessed. By the time pacer checked, she had converted to SR. EKG documents current SR as does telemetry. Pacer check reveals AFL vs AF with complete heart block and conversion back to SR. Proceed with anticoagulation. Sotalol load. Has structural heart disease. Would avoid amiodarone given pulmonary HTN. Need to take V paced QRS complex in to account when following the QTc.
--- NOTE | 2017-06-16 14:19 | Progress Note ---
Subjective Date of Service: Jun 16, 2017. Subjective Pt evaluation today including: conversation w/ patient, physical exam, lab review, review of studies, review of inpatient medication list Saw/examined the patient in room 239 She's doing okay, nausea persists from this morning even after Zofran given Denies chest pain, palpitations, shortness of breath Review of Systems Respiratory: No shortness of breath Cardiac: No chest pain, No palpitations Abdomen: + nausea, No pain, No vomiting, No diarrhea, No constipation, No GI bleeding Medications Current Inpatient Medications Medications (Trade) Dose Ordered Sig/Vanessa Route Start Time Stop Time Status Last Admin Dose Admin Amlodipine Besylate (Norvasc Tab) 10 mg DAILY PO 06/14/17 09:00 07/14/17 08:59 06/16/17 09:24 10 MG Aspirin (Ecotrin Tab) 81 mg DAILY PO 06/14/17 09:00 07/14/17 08:59 06/16/17 09:23 81 MG Cephalexin Monohydrate (Keflex Cap) 500 mg QID PO 06/13/17 21:00 06/23/17 20:59 06/16/17 09:18 500 MG Al Hydroxide/Mg Hydroxide (Maalox Susp) 15 ml Q6H PRN PO 06/14/17 01:15 07/14/17 01:14 06/14/17 01:39 15 ML Oxycodone/ Acetaminophen (Percocet 5-325mg Tab) 1 tab for pain scale 4-6 2 t... Q6H PRN PO 06/14/17 12:30 06/28/17 12:29 06/16/17 03:12 2 TAB Acetaminophen (Tylenol Tab) 650 mg Q4H PRN PO 06/14/17 12:30 07/14/17 12:29 06/15/17 12:47 650 MG Ioversol (Optiray 320) 100 ml UD PRN IV 06/15/17 10:45 06/19/17 10:44 Sotalol HCl (Betapace Tab) 80 mg BID PO 06/16/17 21:00 07/16/17 20:59 Heparin Sodium/ Dextrose 500 ml @ 25 mls/hr Q20H IV 06/16/17 08:45 07/16/17 08:44 06/16/17 09:33 25 MLS/HR Objective Vital Signs Date Time Temp Pulse Resp B/P (MAP) Pulse Ox O2 Delivery O2 Flow Rate FiO2 06/16/17 12:00 92/ (30) 06/16/17 12:00 Room Air 06/16/17 10:01 69 22 129/74 (92) 06/16/17 10:00 65 19 06/16/17 09:22 37.0 66 22 123/75 (91) Room Air 06/16/17 09:00 67 06/16/17 08:00 75 06/16/17 07:00 83 06/16/17 04:00 91 Room Air 06/16/17 03:15 36.9 82 18 138/85 (102) 95 Room Air 06/15/17 23:59 91 Room Air 06/15/17 23:51 36.7 71 20 145/87 (106) 91 Room Air 06/15/17 20:00 91 Room Air 06/15/17 19:21 36.6 81 20 142/80 (100) 91 Room Air 06/15/17 16:00 93 Room Air 06/15/17 15:53 36.6 62 20 136/85 (102) 96 Room Air Physical Exam General Appearance: no apparent distress Respiratory/Chest: no respiratory distress, no accessory muscle use, + decreased breath sounds Cardiovascular: regular rate, rhythm, no edema, no murmur, + pertinent finding (+pacemaker scar L chest wall) Abdomen: normal bowel sounds, non tender, soft Extremities: + swelling (+2 pitting edema b/l LE), + pertinent finding Laboratory Results Last 24 Hours Test 06/16/17 06:07 06/16/17 08:01 White Blood Count 4.86 K/uL 5.12 K/uL Red Blood Count 5.04 M/uL 5.35 M/uL Hemoglobin 14.5 g/dL 15.7 g/dL Hematocrit 43.3 % 46.3 % Mean Corpuscular Volume 85.9 fL 86.5 fL Mean Corpuscular Hemoglobin 28.8 pg 29.3 pg Mean Corpuscular Hemoglobin Concent 33.5 g/dl 33.9 g/dl RDW Standard Deviation 47.3 fL 47.5 fL RDW Coefficient of Variation 15.1 % 15.1 % Platelet Count 149 K/uL 161 K/uL Mean Platelet Volume 10.6 fL 10.4 fL Sodium Level 136 mmol/L Potassium Level 4.1 mmol/L Chloride Level 104 mmol/L Carbon Dioxide Level 24 mmol/L Anion Gap 8.0 mmol/L Blood Urea Nitrogen 16 mg/dl Creatinine 0.99 mg/dl Est Creatinine Clear Calc Drug Dose 56.1 ml/min Estimated GFR () 65.5 Estimated GFR (Non- 56.5 BUN/Creatinine Ratio 16.0 Random Glucose 102 mg/dl Calcium Level 8.2 mg/dl Neutrophils (%) (Auto) 67.0 % Lymphocytes (%) (Auto) 23.2 % Monocytes (%) (Auto) 7.0 % Eosinophils (%) (Auto) 2.0 % Basophils (%) (Auto) 0.4 % Neutrophils # (Auto) 3.43 K/uL Lymphocytes # (Auto) 1.19 K/uL Monocytes # (Auto) 0.36 K/uL Eosinophils # (Auto) 0.10 K/uL Basophils # (Auto) 0.02 K/uL Immature Granulocyte % (Auto) 0.4 % Immature Granulocyte # (Auto) 0.02 K/uL Prothrombin Time 11.4 SECONDS Prothromb Time International Ratio 1.1 Activated Partial Thromboplast Time 28.5 SECONDS Partial Thromboplastin Ratio 1.1 Assessment and Plan Complete Heart Block 06/16 * s/p PPM 06/15 * appreciate cardiology and EP input * s/p permanent pacer placement * currently pacing well * denies any symptoms * transfer from ICU to tele New onset Atrial Flutter * appreciate cardiology input * pacemaker interrogation - atrial flutter/fibrillation * started on IV heparin ggt * sotalol load * EKG daily to monitor QTc RV Systolic Dysfunction Lower Extremity Edema 06/16 * given IV Lasix - can continue PO as outpatient * outpatient sleep study 06/15 * appreciate cardiology input * CT chest done, PE ruled out * will monitor overnight, check kidney function in AM * if doing well, can d/c with Lasix * outpatient sleep study 06/14 * resting echo pending * possibly due to complete heart block * received one dose of IV Lasix * continue Keflex HTN * BP intermittently elevated, will continue amlodipine * Hold Maxzide for now DVT ppx * SCDs FULL CODE
[2017-06-16 16:26] LABS: PTT PATIENT 125.3 SECONDS (21.0-31.0)
[2017-06-16] MEDS: SOTALOL HCL 80 MG TAB PO SCH (21:23)
--- NOTE | 2017-06-16 21:53 | Progress Note ---
Post ICU Progress Note Date & Time Jun 16, 2017 at 21:20 Vital Signs Vital Signs Past 12 Hours Date Time Temp Pulse Resp B/P (MAP) Pulse Ox O2 Delivery O2 Flow Rate FiO2 06/16/17 19:15 37.0 60 20 117/77 (90) 92 Nasal Cannula 2.0 06/16/17 16:00 Room Air 06/16/17 15:04 36.4 60 18 119/80 (93) 92 Room Air 06/16/17 12:00 92/ (30) 06/16/17 12:00 Room Air 06/16/17 10:01 69 22 129/74 (92) 06/16/17 10:00 65 19 06/16/17 09:22 37.0 66 22 123/75 (91) Room Air Notes Mental Status: alert / awake, participated in evaluation Nausea / Vomiting: adequately controlled Pain: adequately controlled Airway Patency, RR, SpO2: stable & adequate BP & HR: stable & adequate Sharon Zelaya was admitted on 06/13 for acute CHF secondary to complete heart block after presenting to new PCP for 2 weeks of progressive shortness of breath. Pt was seen by both cardiology and electrophysiology and did undergo pacemaker placement on 06/14/17. Pts ECHO as recorded below. Pt was downgraded to telemetry status on the day of pacemaker placement. Cardiology continues to follow as pts telemetry was noted to be in Atrial Flutter which later converted to NSR. Pt did undergo chest CT today with findings consistent with chronic pulmonary htn consistent with findings of severe pulm htn on ECHO. Pt is hemodynamically stable. She did not require intubation or invasive monitoring while in the ICU. She remained with pacer pads on until PPM was placed. On examination today, her only complaint was regarding dietary issues which has since been taken care of. She denies shortness of breath at rest. Her physical exam is relatively unchanged aside from new suture site from PPM insertion. Consider outpatient follow up in 1 to 2 weeks with: 1 week with PCP, Follow-up with Cardiology per their directions Repeat imaging needed: NA Follow up cultures: NA Reviewed progress notes, labs, and inpatient medication list Continue current management Additional recommendations: None Thank you for including us in the care of this pt. Pt is hemodynamically stable , Critical Care will sign off at this time. Please feel free to reconsult as needed. Billing: Level 1 inpt Consults & Procedures Consultants: Cardiology: Dr. Cunningham Procedures: ECHO: Third degree AV block; rate 40; Flattened septum - RV pressure/volume overload with septal dyskinesis; RV severely dilated and systolic function severely reduced; interatrial septum bows toward LA (elevated RA pressure); mod tricuspid regurg; severe pulm HTN; PA systolic pressure 65 mm Hg; LV cavity mall in comparison to RV due to the severe displacement of septum; LV EF = 55-60 %. PPM: 06/14/2017
[2017-06-16 23:28] LABS: PTT PATIENT 78.1 SECONDS (21.0-31.0)
[2017-06-17 03:18] VITALS: BP 109/72; PULSE 60; TEMP 36.4; O2SAT 90
[2017-06-17 06:24] LABS: HEMATOCRIT 45.1 % (37-47); HEMOGLOBIN 15.4 g/dL (12.0-16.0); MEAN CELL VOLUME 86.2 fL (80-100); MEAN CORPUSCULAR HEMOGLOBIN 29.4 pg (25-34); MEAN CORPUSCULAR HGB CONC 34.1 g/dl (32-36); MEAN PLATELET VOLUME 10.5 fL (7.4-10.4); PLATELET COUNT 148 K/uL (130-400); RED CELL DISTRIBUTION WIDTH SD 47.8 fL (36.4-46.3); WHITE BLOOD COUNT 5.12 K/uL (4.8-10.8)
[2017-06-17 06:41] LABS: PTT PATIENT 58.3 SECONDS (21.0-31.0)
[2017-06-17 06:43] LABS: CALCIUM 8.3 mg/dl (8.5-10.1); CREATININE 1.06 mg/dl (0.60-1.20); POTASSIUM 3.9 mmol/L (3.5-5.1)
[2017-06-17] MEDS: ASPIRIN 81 MG ECTAB PO SCH (07:54)
[2017-06-17] MEDS: AMLODIPINE BESYLATE 5 MG TAB PO SCH (07:54)
[2017-06-17] MEDS: CEPHALEXIN MONOHYDRATE 500 MG CAP PO SCH ×4 (07:54→21:05)
[2017-06-17] MEDS: SOTALOL HCL 80 MG TAB PO SCH (07:54)
[2017-06-17 08:00] VITALS: BP 140/89; PULSE 60; TEMP 36.6; O2SAT 97
[2017-06-17] MEDS ORDERED: APIXABAN 2.5 MG TAB PO ONE (10:08)
[2017-06-17] MEDS ORDERED: FUROSEMIDE 20 MG TAB PO ONE (10:08)
[2017-06-17] MEDS ORDERED: SPIRONOLACTONE 25 MG TAB PO ONE (10:08)
--- NOTE | 2017-06-17 10:22 | Cardiology Follow-Up ---
Subjective General Date of Service: Jun 17, 2017. Chief Complaint: follow up shortness of breath, lower extremity edema, bradycardia Pt evaluation today including: conversation w/ patient, physical exam, chart review, lab review, review of studies, review of inpatient medication list History of Present Illness The patient is a 71 year old female seen in follow-up. Complains of left upper extremity edema. Reports pain in her pacemaker site. AV paced on telemetry. Prolonged QTC noted on baseline ECG however wide QRS secondary to RV pacing present. No dysrhythmias on telemetry. Offers no other complaints at this time. Allergies Coded Allergies: Erythromycin (Unverified Allergy, Intermediate, ., 06/13/17) Penicillins (Unverified Allergy, Intermediate, ., 06/13/17) Social History Smoking Status: Former Smoker (quit 40 years ago) Hx Tobacco Use In Past Year?: No Hx Alcohol Use - Type And Amou: No Hx Substance Use - Type And Am: No Review of Systems Respiratory: + cough, + dyspnea on exertion, No sputum, No wheezing, No shortness of breath, No dyspnea at rest, No hemoptysis Cardiac: + edema, No chest pain, No orthopnea, No PND, No claudication, No palpitations Physical Exam Vital Signs Last Vital Signs Documentation Date Time Temp Pulse Resp B/P (MAP) Pulse Ox O2 Delivery O2 Flow Rate FiO2 06/17/17 08:00 36.6 60 18 140/89 (106) 97 Nasal Cannula 2.0 Physical Exam Constitutional: General Apperance: obese Level of Distress: acutely ill, chronically ill Head: normocephalic ENMT: TMs normal Neck: trachea midline Lungs: Auscultation: no wheezing, no rales/crackles Cardiovascular: Heart Auscultation: RRR, no murmurs, pertinent finding (left infraclavicular pacemaker incision without drainage, mild erythema) Abdomen: Bowel Sounds: normal Inspection & Palpation: soft, non-distended, no tenderness, guarding & rebound Extremities: pertinent finding (1-2+ edema of LE, 1+ LUE edema.) Neurologic: Gait & Station: pertinent finding (No focal deficits) Assessment and Plan Assessment and Plan Impression: 1. Third-degree AV block with junctional escape status post dual-chamber pacemaker implantation 06/14/17 - LUE edema noted 2. Paroxysmal atrial flutter with complete heart block and controlled ventricular rate /ventricular paced rhythm 3. Severe RV dysfunction, pulmonary hypertension 4. History of Raynaud's disease 5. Hypertension 6. Family hx of systemic sclerosis, daughter, after cardiac arrest at age 49 Plan/recommendations: I had a long discussion with the patient regarding long-term oral anticoagulation. The risks and benefits of Coumadin vs. DOAC discussed at length. Patient agreeable to Eliquis 5 mg twice daily. She will receive her first dose of Eliquis this morning. Heparin will be discontinued at that time. We also discussed her brief episode of atrial flutter recorded on telemetry post pacemaker insertion. Monitoring QTC is problematic due to underlying ventricular paced rhythm. Patient is leland to beta-lukasz therapy. I have recommended transitioning to metoprolol with continued telemetry monitoring as well as pacemaker interrogations at follow-up. Antiarrhythmic therapy can be considered if patient has breakthrough arrhythmia on beta lukasz therapy. Patient appears volume overloaded with primarily right-sided signs/symptoms. Recommend Aldactone 25 mg daily. I will also add furosemide 20 mg daily with her first dose today. Repeat basic metabolic panel in the a.m. continue to monitor left upper extremity edema status post pacemaker insertion. All questions were answered to patient's satisfaction. I will continue to follow closely during hospitalization. Laboratory Results Last 24 Hours Test 06/16/17 15:44 06/16/17 22:55 06/17/17 06:03 Activated Partial Thromboplast Time 125.3 SECONDS 78.1 SECONDS 58.3 SECONDS Partial Thromboplastin Ratio 4.8 3.0 2.2 White Blood Count 5.12 K/uL Red Blood Count 5.23 M/uL Hemoglobin 15.4 g/dL Hematocrit 45.1 % Mean Corpuscular Volume 86.2 fL Mean Corpuscular Hemoglobin 29.4 pg Mean Corpuscular Hemoglobin Concent 34.1 g/dl RDW Standard Deviation 47.8 fL RDW Coefficient of Variation 15.0 % Platelet Count 148 K/uL Mean Platelet Volume 10.5 fL Sodium Level 134 mmol/L Potassium Level 3.9 mmol/L Chloride Level 101 mmol/L Carbon Dioxide Level 25 mmol/L Anion Gap 8.0 mmol/L Blood Urea Nitrogen 17 mg/dl Creatinine 1.06 mg/dl Est Creatinine Clear Calc Drug Dose 52.4 ml/min Estimated GFR () 60.3 Estimated GFR (Non- 52.0 BUN/Creatinine Ratio 15.8 Random Glucose 96 mg/dl Calcium Level 8.3 mg/dl Magnesium Level 1.9 mg/dl
[2017-06-17 10:50] VITALS: BP 121/81; PULSE 60; TEMP 36.7; O2SAT 97
--- NOTE | 2017-06-17 14:20 | DIAGNOSTIC IMAGING REPORT ---
L VENOUS DOPPLER UPR EXT UNIL HISTORY: Pain. Edema. r/o dvt; swelling COMPARISON STUDY: None. FINDINGS: The internal jugular vein is patent. There is normal flow within the subclavian vein. There is normal flow and compressibility within the left axillary, and bulk of the distal venous structures. Thrombus is identified within the left cephalic vein at its proximal and upper arm levels. IMPRESSION: 1. Thrombus identified within the left cephalic vein as well as proximal and upper arm levels. 2. All remaining venous structures are unremarkable. The above report was generated using voice recognition software. It may contain grammatical, syntax or spelling errors. Electronically signed by: Dickson Cardenas M.D. 06/17/2017 2:18 PM Dictated Date/Time: 06/17/2017 2:17 PM
[2017-06-17 15:11] VITALS: BP 121/78; PULSE 60; TEMP 36.6; O2SAT 96
--- NOTE | 2017-06-17 15:50 | Progress Note ---
Subjective Date of Service: Jun 17, 2017. Subjective Pt evaluation today including: conversation w/ patient, physical exam, lab review, review of studies, conversation w/ technology sales consultant, review of inpatient medication list Saw/examined the patient in room 239 She is doing well - no shortness of breath, now off of supplemental O2, no chest pain/palpitations L hand swelling and upper extremity noted Patient is anxious to go home Review of Systems Constitutional: No fever, No chills Respiratory: No cough, No sputum, No shortness of breath Cardiac: No chest pain, No edema, No palpitations Musculoskeletal: + swelling (LUE) Heme: No abnormal bleeding/bruising Medications Current Inpatient Medications Medications (Trade) Dose Ordered Sig/Vanessa Route Start Time Stop Time Status Last Admin Dose Admin Amlodipine Besylate (Norvasc Tab) 10 mg DAILY PO 06/14/17 09:00 07/14/17 08:59 06/17/17 07:54 10 MG Aspirin (Ecotrin Tab) 81 mg DAILY PO 06/14/17 09:00 07/14/17 08:59 06/17/17 07:54 81 MG Cephalexin Monohydrate (Keflex Cap) 500 mg QID PO 06/13/17 21:00 06/23/17 20:59 06/17/17 07:54 500 MG Al Hydroxide/Mg Hydroxide (Maalox Susp) 15 ml Q6H PRN PO 06/14/17 01:15 07/14/17 01:14 06/14/17 01:39 15 ML Oxycodone/ Acetaminophen (Percocet 5-325mg Tab) 1 tab for pain scale 4-6 2 t... Q6H PRN PO 06/14/17 12:30 06/28/17 12:29 06/16/17 03:12 2 TAB Acetaminophen (Tylenol Tab) 650 mg Q4H PRN PO 06/14/17 12:30 07/14/17 12:29 06/15/17 12:47 650 MG Ioversol (Optiray 320) 100 ml UD PRN IV 06/15/17 10:45 06/19/17 10:44 Spironolactone (Aldactone Tab) 25 mg QAM PO 06/18/17 09:00 07/18/17 08:59 Metoprolol Tartrate (Lopressor Tab) 25 mg BID PO 06/17/17 21:00 4/16/18 20:59 Apixaban (Eliquis Tab) 5 mg BID PO 06/17/17 21:00 07/17/17 20:59 Furosemide (Lasix Tab) 20 mg QAM PO 06/18/17 09:00 07/18/17 08:59 Objective Vital Signs Date Time Temp Pulse Resp B/P (MAP) Pulse Ox O2 Delivery O2 Flow Rate FiO2 06/17/17 15:11 36.6 60 18 121/78 (92) 96 Nasal Cannula 2.0 06/17/17 10:50 36.7 60 2 121/81 (94) 97 Nasal Cannula 3.5 06/17/17 08:00 36.6 60 18 140/89 (106) 97 Nasal Cannula 2.0 06/17/17 04:00 Room Air 06/17/17 03:18 36.4 60 16 109/72 (84) 90 06/17/17 00:01 Room Air 06/16/17 23:41 36.9 60 16 119/79 (92) 94 2.0 06/16/17 20:00 Room Air 06/16/17 19:15 37.0 60 20 117/77 (90) 92 Nasal Cannula 2.0 06/16/17 16:00 Room Air Physical Exam General Appearance: no apparent distress Respiratory/Chest: no respiratory distress, no accessory muscle use, + decreased breath sounds, + pertinent finding (s/p pacemaker in the L chest wall) Cardiovascular: regular rate, rhythm, no murmur Extremities: + swelling (+1 pitting edema in the LUE; +1-2 pitting edema in the b/l LE), + pertinent finding Neurologic/Psychiatric: no motor/sensory deficits, alert, normal mood/affect Laboratory Results Last 24 Hours Test 06/16/17 15:44 06/16/17 22:55 06/17/17 06:03 Activated Partial Thromboplast Time 125.3 SECONDS 78.1 SECONDS 58.3 SECONDS Partial Thromboplastin Ratio 4.8 3.0 2.2 White Blood Count 5.12 K/uL Red Blood Count 5.23 M/uL Hemoglobin 15.4 g/dL Hematocrit 45.1 % Mean Corpuscular Volume 86.2 fL Mean Corpuscular Hemoglobin 29.4 pg Mean Corpuscular Hemoglobin Concent 34.1 g/dl RDW Standard Deviation 47.8 fL RDW Coefficient of Variation 15.0 % Platelet Count 148 K/uL Mean Platelet Volume 10.5 fL Sodium Level 134 mmol/L Potassium Level 3.9 mmol/L Chloride Level 101 mmol/L Carbon Dioxide Level 25 mmol/L Anion Gap 8.0 mmol/L Blood Urea Nitrogen 17 mg/dl Creatinine 1.06 mg/dl Est Creatinine Clear Calc Drug Dose 52.4 ml/min Estimated GFR () 60.3 Estimated GFR (Non- 52.0 BUN/Creatinine Ratio 15.8 Random Glucose 96 mg/dl Calcium Level 8.3 mg/dl Magnesium Level 1.9 mg/dl Assessment and Plan New onset Atrial Flutter 06/17 * appreciate cardiology input * Eliquis started, heparin ggt stopped * sotalol stopped - metoprolol started * Lasix and Aldactone started due to fluid overload * s/p pacemaker insertion 06/16 * appreciate cardiology input * pacemaker interrogation - atrial flutter/fibrillation * started on IV heparin ggt * sotalol load * EKG daily to monitor QTc RV Systolic Dysfunction Lower Extremity Edema 06/16 * given IV Lasix - can continue PO as outpatient * outpatient sleep study 06/15 * appreciate cardiology input * CT chest done, PE ruled out * will monitor overnight, check kidney function in AM * if doing well, can d/c with Lasix * outpatient sleep study 06/14 * resting echo pending * possibly due to complete heart block * received one dose of IV Lasix * continue Keflex Complete Heart Block 06/16 * s/p PPM 06/15 * appreciate cardiology and EP input * s/p permanent pacer placement * currently pacing well * denies any symptoms * transfer from ICU to tele HTN * BP intermittently elevated, will continue amlodipine * Hold Maxzide for now DVT ppx * Eliquis FULL CODE
[2017-06-17 19:01] VITALS: BP 115/70; PULSE 60; TEMP 37; O2SAT 95
[2017-06-17] MEDS: METOPROLOL TARTRATE 25 MG TAB PO SCH (21:06)
[2017-06-17] MEDS: APIXABAN 2.5 MG TAB PO SCH (21:06)
[2017-06-18] VITALS (7 sets, daily range): BP systolic 112–126; BP diastolic 76–85; PULSE 56–65; TEMP 36.6–37.2; O2SAT 93–97
[2017-06-18 06:25] LABS: HEMATOCRIT 44.5 % (37-47); HEMOGLOBIN 14.9 g/dL (12.0-16.0); MEAN CELL VOLUME 86.4 fL (80-100); MEAN CORPUSCULAR HEMOGLOBIN 28.9 pg (25-34); MEAN CORPUSCULAR HGB CONC 33.5 g/dl (32-36); PLATELET COUNT 165 K/uL (130-400); RED CELL DISTRIBUTION WIDTH SD 47.6 fL (36.4-46.3); WHITE BLOOD COUNT 7.23 K/uL (4.8-10.8)
[2017-06-18 06:37] LABS: PTT PATIENT 30.6 SECONDS (21.0-31.0)
[2017-06-18 06:48] LABS: CALCIUM 8.7 mg/dl (8.5-10.1); CREATININE 1.29 mg/dl (0.60-1.20); POTASSIUM 4.1 mmol/L (3.5-5.1)
[2017-06-18] MEDS: AMLODIPINE BESYLATE 5 MG TAB PO SCH (07:45)
[2017-06-18] MEDS: ASPIRIN 81 MG ECTAB PO SCH (07:45)
[2017-06-18] MEDS: CEPHALEXIN MONOHYDRATE 500 MG CAP PO SCH ×4 (07:46→20:59)
[2017-06-18] MEDS: SPIRONOLACTONE 25 MG TAB PO SCH (07:46)
[2017-06-18] MEDS: APIXABAN 2.5 MG TAB PO SCH ×2 (07:46→20:59)
[2017-06-18] MEDS: METOPROLOL TARTRATE 25 MG TAB PO SCH ×3 (07:46→20:59)
[2017-06-18] MEDS ORDERED: FUROSEMIDE 20 MG TAB PO SCH (09:00)
--- NOTE | 2017-06-18 12:17 | Cardiology Follow-Up ---
Subjective General Date of Service: Jun 18, 2017. Chief Complaint: follow up shortness of breath, lower extremity edema, bradycardia Pt evaluation today including: conversation w/ patient, physical exam, chart review, lab review, review of studies, conversation w/ network relations consultant, review of inpatient medication list History of Present Illness The patient is a 71 year old female seen in follow-up. Superficial left cephalic venous thrombosis noted on ultrasound. Patient feeling well today. Left upper extremity edema has improved. AV paced on telemetry. Denies chest discomfort or unusual shortness of breath. Creatinine mildly elevated after dose of furosemide and Aldactone. Allergies Coded Allergies: Erythromycin (Unverified Allergy, Intermediate, ., 06/13/17) Penicillins (Unverified Allergy, Intermediate, ., 06/13/17) Social History Smoking Status: Former Smoker (quit 40 years ago) Hx Tobacco Use In Past Year?: No Hx Alcohol Use - Type And Amou: No Hx Substance Use - Type And Am: No Review of Systems Respiratory: + dyspnea on exertion, No cough, No sputum, No wheezing, No shortness of breath, No dyspnea at rest, No hemoptysis Cardiac: + edema, No chest pain, No orthopnea, No PND, No claudication, No palpitations Physical Exam Vital Signs Last Vital Signs Documentation Date Time Temp Pulse Resp B/P (MAP) Pulse Ox O2 Delivery O2 Flow Rate FiO2 06/18/17 11:13 36.7 60 20 119/78 (92) 96 Nasal Cannula 2.0 Physical Exam Constitutional: General Apperance: obese Level of Distress: acutely ill, chronically ill Head: normocephalic ENMT: TMs normal Neck: trachea midline Lungs: Auscultation: no wheezing, no rales/crackles Cardiovascular: Heart Auscultation: RRR, no murmurs, pertinent finding (left infraclavicular pacemaker incision without drainage, mild erythema) Abdomen: Bowel Sounds: normal Inspection & Palpation: soft, non-distended, no tenderness, guarding & rebound Extremities: pertinent finding (1+ edema of LE, 1+ LUE edema.) Neurologic: Gait & Station: pertinent finding (No focal deficits) Assessment and Plan Assessment and Plan Impression: 1. 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 Left upper extremity superficial cephalic vein thrombosis with associated edema 3. Paroxysmal atrial flutter with complete heart block and controlled ventricular rate /ventricular paced rhythm 4. Severe RV dysfunction, pulmonary hypertension 5. History of Raynaud's disease 6. Hypertension 7. Family hx of systemic sclerosis, daughter, after cardiac arrest at age 49 Plan/recommendations: Continue Aldactone in addition to furosemide 20 mg daily. Outpatient dose of diuretic therapy was furosemide 20 mg twice daily. Mild elevation of creatinine noted today. Recommend repeat basic metabolic panel in a.m. Recommend discontinuation of Dyazide. Increase metoprolol to 25 mg 3 times daily. Eliquis for anticoagulation. Post pacemaker wound check in my office in 1 week. Threshold testing in 4-6 weeks. Laboratory Results Last 24 Hours Test 06/18/17 06:11 White Blood Count 7.23 K/uL Red Blood Count 5.15 M/uL Hemoglobin 14.9 g/dL Hematocrit 44.5 % Mean Corpuscular Volume 86.4 fL Mean Corpuscular Hemoglobin 28.9 pg Mean Corpuscular Hemoglobin Concent 33.5 g/dl RDW Standard Deviation 47.6 fL RDW Coefficient of Variation 15.0 % Platelet Count 165 K/uL Mean Platelet Volume 10.0 fL Activated Partial Thromboplast Time 30.6 SECONDS Partial Thromboplastin Ratio 1.2 Sodium Level 134 mmol/L Potassium Level 4.1 mmol/L Chloride Level 101 mmol/L Carbon Dioxide Level 26 mmol/L Anion Gap 7.0 mmol/L Blood Urea Nitrogen 21 mg/dl Creatinine 1.29 mg/dl Est Creatinine Clear Calc Drug Dose 43.4 ml/min Estimated GFR () 47.6 Estimated GFR (Non- 41.0 BUN/Creatinine Ratio 15.9 Random Glucose 87 mg/dl Calcium Level 8.7 mg/dl Magnesium Level 2.0 mg/dl
--- NOTE | 2017-06-18 12:39 | Progress Note ---
Subjective Date of Service: Jun 18, 2017. Subjective Pt evaluation today including: conversation w/ patient, conversation w/ family , physical exam, lab review, review of studies, conversation w/ senior analytic consultant, review of inpatient medication list Saw/examined the patient in room 239 Review of Systems Constitutional: No fever, No chills Respiratory: No cough, No sputum, No wheezing, No shortness of breath, No dyspnea on exertion, No dyspnea at rest, No hemoptysis Cardiac: + edema, No chest pain, No palpitations Abdomen: No pain, No nausea, No vomiting, No diarrhea Musculoskeletal: + swelling (b/l LE and LUE) Heme: No abnormal bleeding/bruising Medications Current Inpatient Medications Medications (Trade) Dose Ordered Sig/Vanessa Route Start Time Stop Time Status Last Admin Dose Admin Amlodipine Besylate (Norvasc Tab) 10 mg DAILY PO 06/14/17 09:00 07/14/17 08:59 06/18/17 07:45 10 MG Aspirin (Ecotrin Tab) 81 mg DAILY PO 06/14/17 09:00 07/14/17 08:59 06/18/17 07:45 81 MG Cephalexin Monohydrate (Keflex Cap) 500 mg QID PO 06/13/17 21:00 06/23/17 20:59 06/18/17 07:46 500 MG Al Hydroxide/Mg Hydroxide (Maalox Susp) 15 ml Q6H PRN PO 06/14/17 01:15 07/14/17 01:14 06/14/17 01:39 15 ML Oxycodone/ Acetaminophen (Percocet 5-325mg Tab) 1 tab for pain scale 4-6 2 t... Q6H PRN PO 06/14/17 12:30 06/28/17 12:29 06/16/17 03:12 2 TAB Acetaminophen (Tylenol Tab) 650 mg Q4H PRN PO 06/14/17 12:30 07/14/17 12:29 06/15/17 12:47 650 MG Ioversol (Optiray 320) 100 ml UD PRN IV 06/15/17 10:45 06/19/17 10:44 Spironolactone (Aldactone Tab) 25 mg QAM PO 06/18/17 09:00 07/18/17 08:59 06/18/17 07:46 25 MG Apixaban (Eliquis Tab) 5 mg BID PO 06/17/17 21:00 07/17/17 20:59 06/18/17 07:46 5 MG Metoprolol Tartrate (Lopressor Tab) 25 mg Q8 PO 06/18/17 14:00 07/17/17 20:59 Objective Vital Signs Date Time Temp Pulse Resp B/P (MAP) Pulse Ox O2 Delivery O2 Flow Rate FiO2 06/18/17 11:13 36.7 60 20 119/78 (92) 96 Nasal Cannula 2.0 06/18/17 07:14 36.6 60 20 126/82 (97) 97 Nasal Cannula 4.5 06/18/17 04:00 Nasal Cannula 4.0 06/18/17 03:21 37.0 65 16 118/76 (90) 97 5.0 06/18/17 00:12 36.9 61 18 112/85 (94) 93 06/18/17 00:02 Nasal Cannula 4.0 06/17/17 20:00 Nasal Cannula 2.0 06/17/17 19:01 37.0 60 18 115/70 (85) 95 Nasal Cannula 3.0 06/17/17 16:00 Room Air 06/17/17 15:11 36.6 60 18 121/78 (92) 96 Nasal Cannula 2.0 Physical Exam General Appearance: no apparent distress, + obese Respiratory/Chest: chest non-tender, lungs clear, normal breath sounds, no respiratory distress, no accessory muscle use, + pertinent finding (s/p pacemaker) Cardiovascular: regular rate, rhythm, no murmur Extremities: + pedal edema, + swelling (+1 pitting edema; edema LUE), + pertinent finding Neurologic/Psychiatric: no motor/sensory deficits, alert, normal mood/affect Laboratory Results Last 24 Hours Test 06/18/17 06:11 White Blood Count 7.23 K/uL Red Blood Count 5.15 M/uL Hemoglobin 14.9 g/dL Hematocrit 44.5 % Mean Corpuscular Volume 86.4 fL Mean Corpuscular Hemoglobin 28.9 pg Mean Corpuscular Hemoglobin Concent 33.5 g/dl RDW Standard Deviation 47.6 fL RDW Coefficient of Variation 15.0 % Platelet Count 165 K/uL Mean Platelet Volume 10.0 fL Activated Partial Thromboplast Time 30.6 SECONDS Partial Thromboplastin Ratio 1.2 Sodium Level 134 mmol/L Potassium Level 4.1 mmol/L Chloride Level 101 mmol/L Carbon Dioxide Level 26 mmol/L Anion Gap 7.0 mmol/L Blood Urea Nitrogen 21 mg/dl Creatinine 1.29 mg/dl Est Creatinine Clear Calc Drug Dose 43.4 ml/min Estimated GFR () 47.6 Estimated GFR (Non- 41.0 BUN/Creatinine Ratio 15.9 Random Glucose 87 mg/dl Calcium Level 8.7 mg/dl Magnesium Level 2.0 mg/dl Assessment and Plan New onset Atrial Flutter 06/18 * patient is doing well; she's had her pacemaker inserted, no issues * plan for possible d/c in AM on Eliquis, Aldactone, Metoprolol, Aspirin, Norvasc and PRN Lasix * outpatient f/u with cardiology and PCP * will need outpatient sleep study for further eval of RV dysfunction 06/17 * appreciate cardiology input * Eliquis started, heparin ggt stopped * sotalol stopped - metoprolol started * Lasix and Aldactone started due to fluid overload * s/p pacemaker insertion 06/16 * appreciate cardiology input * pacemaker interrogation - atrial flutter/fibrillation * started on IV heparin ggt * sotalol load * EKG daily to monitor QTc RV Systolic Dysfunction Lower Extremity Edema 06/16 * given IV Lasix - can continue PO as outpatient * outpatient sleep study 06/15 * appreciate cardiology input * CT chest done, PE ruled out * will monitor overnight, check kidney function in AM * if doing well, can d/c with Lasix * outpatient sleep study 06/14 * resting echo pending * possibly due to complete heart block * received one dose of IV Lasix * continue Keflex Superficial Thrombus - LUE * warm compress and patient is already on Eliquis, swelling improving Complete Heart Block 06/16 * s/p PPM 06/15 * appreciate cardiology and EP input * s/p permanent pacer placement * currently pacing well * denies any symptoms * transfer from ICU to tele HTN * BP intermittently elevated, will continue amlodipine * Hold Maxzide for now DVT ppx * Eliquis FULL CODE
[2017-06-19 01:33] LABS: ANA SCREEN TC 249X POSITIVE (NEGATIVE)
[2017-06-19 04:24] VITALS: BP 118/78; PULSE 60; TEMP 37.1; O2SAT 94
[2017-06-19] MEDS: METOPROLOL TARTRATE 25 MG TAB PO SCH ×2 (05:16→13:12)
[2017-06-19 07:30] VITALS: BP 120/80; PULSE 60; TEMP 36.8; O2SAT 96
[2017-06-19 07:35] LABS: PTT PATIENT 32.2 SECONDS (21.0-31.0)
[2017-06-19 07:41] LABS: CALCIUM 8.7 mg/dl (8.5-10.1); CREATININE 1.06 mg/dl (0.60-1.20)
[2017-06-19] MEDS: AMLODIPINE BESYLATE 5 MG TAB PO SCH (07:46)
[2017-06-19] MEDS: APIXABAN 2.5 MG TAB PO SCH (07:46)
[2017-06-19] MEDS: SPIRONOLACTONE 25 MG TAB PO SCH (07:46)
[2017-06-19] MEDS: CEPHALEXIN MONOHYDRATE 500 MG CAP PO SCH ×2 (07:46→12:39)
[2017-06-19] MEDS: ASPIRIN 81 MG ECTAB PO SCH (07:46)
[2017-06-19 08:06] LABS: HEMATOCRIT 41.9 % (37-47); HEMOGLOBIN 13.9 g/dL (12.0-16.0); MEAN CELL VOLUME 87.1 fL (80-100); MEAN CORPUSCULAR HEMOGLOBIN 28.9 pg (25-34); MEAN CORPUSCULAR HGB CONC 33.2 g/dl (32-36); MEAN PLATELET VOLUME 10.4 fL (7.4-10.4); PLATELET COUNT 167 K/uL (130-400); RED CELL DISTRIBUTION WIDTH CV 15.1 % (11.5-14.5); RED CELL DISTRIBUTION WIDTH SD 48.1 fL (36.4-46.3); WHITE BLOOD COUNT 8.03 K/uL (4.8-10.8)
--- NOTE | 2017-06-19 10:19 | Progress Note ---
Subjective Date of Service: Jun 19, 2017. Subjective Pt evaluation today including: conversation w/ patient, physical exam, lab review, review of studies, review of inpatient medication list Saw/examined the patient in room 239 Son is the room with the patient Explained to the patient that we will need to perform a two step exercise to monitor her oxygen levels She is agreeable Does not want to go to a facility for rehab - would like to go home with home health Review of Systems Constitutional: + weakness, No fever, No chills Respiratory: No cough, No sputum, No wheezing, No shortness of breath, No dyspnea on exertion, No dyspnea at rest, No hemoptysis Cardiac: No chest pain, No edema, No palpitations Medications Current Inpatient Medications Medications (Trade) Dose Ordered Sig/Vanessa Route Start Time Stop Time Status Last Admin Dose Admin Amlodipine Besylate (Norvasc Tab) 10 mg DAILY PO 06/14/17 09:00 07/14/17 08:59 06/19/17 07:46 10 MG Aspirin (Ecotrin Tab) 81 mg DAILY PO 06/14/17 09:00 07/14/17 08:59 06/19/17 07:46 81 MG Cephalexin Monohydrate (Keflex Cap) 500 mg QID PO 06/13/17 21:00 06/23/17 20:59 06/19/17 07:46 500 MG Al Hydroxide/Mg Hydroxide (Maalox Susp) 15 ml Q6H PRN PO 06/14/17 01:15 07/14/17 01:14 06/14/17 01:39 15 ML Oxycodone/ Acetaminophen (Percocet 5-325mg Tab) 1 tab for pain scale 4-6 2 t... Q6H PRN PO 06/14/17 12:30 06/28/17 12:29 06/16/17 03:12 2 TAB Acetaminophen (Tylenol Tab) 650 mg Q4H PRN PO 06/14/17 12:30 07/14/17 12:29 06/15/17 12:47 650 MG Ioversol (Optiray 320) 100 ml UD PRN IV 06/15/17 10:45 06/19/17 10:44 Spironolactone (Aldactone Tab) 25 mg QAM PO 06/18/17 09:00 07/18/17 08:59 06/19/17 07:46 25 MG Apixaban (Eliquis Tab) 5 mg BID PO 06/17/17 21:00 07/17/17 20:59 06/19/17 07:46 5 MG Metoprolol Tartrate (Lopressor Tab) 25 mg Q8 PO 06/18/17 14:00 07/17/17 20:59 06/19/17 05:16 25 MG Objective Vital Signs Date Time Temp Pulse Resp B/P (MAP) Pulse Ox O2 Delivery O2 Flow Rate FiO2 06/19/17 08:00 Nasal Cannula 2.0 06/19/17 07:30 36.8 60 20 120/80 (93) 96 Nasal Cannula 2.5 06/19/17 04:24 37.1 60 16 118/78 (91) 94 2.0 06/19/17 04:00 Nasal Cannula 2.0 06/19/17 00:06 Nasal Cannula 2.0 06/18/17 23:29 37.2 60 16 125/82 (96) 96 06/18/17 20:00 Nasal Cannula 2.0 06/18/17 19:14 37.1 56 20 126/84 (98) 95 Nasal Cannula 2.0 06/18/17 16:00 Room Air 06/18/17 15:01 36.8 59 18 122/79 (93) 97 Nasal Cannula 2.0 06/18/17 12:00 Room Air 06/18/17 11:13 36.7 60 20 119/78 (92) 96 Nasal Cannula 2.0 Physical Exam General Appearance: no apparent distress Respiratory/Chest: lungs clear, normal breath sounds, no respiratory distress, no accessory muscle use Cardiovascular: regular rate, rhythm, no murmur, + pertinent finding ( pacemaker inserted in L chest wall) Extremities: + swelling, + pertinent finding (improving swelling of b/l LE and LUE) Neurologic/Psychiatric: no motor/sensory deficits, alert, normal mood/affect Laboratory Results Last 24 Hours Test 06/19/17 07:03 White Blood Count 8.03 K/uL Red Blood Count 4.81 M/uL Hemoglobin 13.9 g/dL Hematocrit 41.9 % Mean Corpuscular Volume 87.1 fL Mean Corpuscular Hemoglobin 28.9 pg Mean Corpuscular Hemoglobin Concent 33.2 g/dl RDW Standard Deviation 48.1 fL RDW Coefficient of Variation 15.1 % Platelet Count 167 K/uL Mean Platelet Volume 10.4 fL Activated Partial Thromboplast Time 32.2 SECONDS Partial Thromboplastin Ratio 1.2 Sodium Level 136 mmol/L Potassium Level 4.0 mmol/L Chloride Level 101 mmol/L Carbon Dioxide Level 28 mmol/L Anion Gap 7.0 mmol/L Blood Urea Nitrogen 23 mg/dl Creatinine 1.06 mg/dl Est Creatinine Clear Calc Drug Dose 52.6 ml/min Estimated GFR () 60.3 Estimated GFR (Non- 52.0 BUN/Creatinine Ratio 21.6 Random Glucose 94 mg/dl Calcium Level 8.7 mg/dl Magnesium Level 2.0 mg/dl Assessment and Plan New onset Atrial Flutter 06/19 * for this atrial flutter, patient to be on metoprolol as per cardiology * she is on Eliquis for anticoagulation * outpatient w/up - outpatient sleep study * two step performed - due to Raynaud's and due to weakness a complete two step could not be performed - she will likely require O2 with ambulation, but unsure how much she will need; 2-4L * as per cardiology, she can take Aldactone and Lasix daily * could consider transitioning her off of Norvasc due to lower extremity edema 06/18 * patient is doing well; she's had her pacemaker inserted, no issues * plan for possible d/c in AM on Eliquis, Aldactone, Metoprolol, Aspirin, Norvasc and PRN Lasix * outpatient f/u with cardiology and PCP * will need outpatient sleep study for further eval of RV dysfunction 06/17 * appreciate cardiology input * Eliquis started, heparin ggt stopped * sotalol stopped - metoprolol started * Lasix and Aldactone started due to fluid overload * s/p pacemaker insertion 06/16 * appreciate cardiology input * pacemaker interrogation - atrial flutter/fibrillation * started on IV heparin ggt * sotalol load * EKG daily to monitor QTc RV Systolic Dysfunction Lower Extremity Edema 06/16 * given IV Lasix - can continue PO as outpatient * outpatient sleep study 06/15 * appreciate cardiology input * CT chest done, PE ruled out * will monitor overnight, check kidney function in AM * if doing well, can d/c with Lasix * outpatient sleep study 06/14 * resting echo pending * possibly due to complete heart block * received one dose of IV Lasix * continue Keflex Superficial Thrombus - LUE * warm compress and patient is already on Eliquis, swelling improving Complete Heart Block 06/16 * s/p PPM 06/15 * appreciate cardiology and EP input * s/p permanent pacer placement * currently pacing well * denies any symptoms * transfer from ICU to tele HTN * BP intermittently elevated, will continue amlodipine * Hold Maxzide for now DVT ppx * Eliquis FULL CODE
--- NOTE | 2017-06-19 10:21 | Cardiology Follow-Up ---
Subjective General Date of Service: Jun 19, 2017. Chief Complaint: follow up shortness of breath, lower extremity edema, bradycardia Pt evaluation today including: conversation w/ patient, physical exam, chart review, lab review, review of studies, review of inpatient medication list History of Present Illness The patient is a 71 year old female seen in follow-up. Denies chest discomfort or unusual shortness of breath. Lower extremity edema improved, left upper extremity edema improving as well. Denies palpitations, lightheadedness, dizziness, syncope or near syncope. AV paced on telemetry. No recurrent atrial flutter. Allergies Coded Allergies: Erythromycin (Unverified Allergy, Intermediate, ., 06/13/17) Penicillins (Unverified Allergy, Intermediate, ., 06/13/17) Social History Smoking Status: Former Smoker (quit 40 years ago) Hx Tobacco Use In Past Year?: No Hx Alcohol Use - Type And Amou: No Hx Substance Use - Type And Am: No Review of Systems Respiratory: + dyspnea on exertion, No cough, No wheezing, No shortness of breath, No dyspnea at rest, No hemoptysis Cardiac: + edema, No chest pain, No orthopnea, No PND, No claudication, No palpitations Physical Exam Vital Signs Last Vital Signs Documentation Date Time Temp Pulse Resp B/P (MAP) Pulse Ox O2 Delivery O2 Flow Rate FiO2 06/19/17 08:00 Nasal Cannula 2.0 06/19/17 07:30 36.8 60 20 120/80 (93) 96 Physical Exam Constitutional: General Apperance: obese Level of Distress: acutely ill, chronically ill Head: normocephalic ENMT: TMs normal Neck: trachea midline Lungs: Auscultation: no wheezing, no rales/crackles Cardiovascular: Heart Auscultation: RRR, no murmurs, pertinent finding (left infraclavicular pacemaker incision without drainage, mild erythema) Abdomen: Bowel Sounds: normal Inspection & Palpation: soft, non-distended, no tenderness, guarding & rebound Extremities: pertinent finding (1+ edema of LE, 1+ LUE edema.) Neurologic: Gait & Station: pertinent finding (No focal deficits) Assessment and Plan Assessment and Plan Impression: 1. 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 Left upper extremity superficial cephalic vein thrombosis with associated edema 3. Paroxysmal atrial flutter with complete heart block and controlled ventricular rate /ventricular paced rhythm -No recurrence; AV paced on telemetry 4. Severe RV dysfunction, pulmonary hypertension, chronic right-sided heart failure -Improved with diuretic therapy -Creatinine has returned to baseline 5. History of Raynaud's disease 6. Hypertension 7. Family hx of systemic sclerosis, daughter, after cardiac arrest at age 49 - SCL 70 scleroderma antibody negative; YENNY positive Plan/recommendations: Continue Aldactone in addition to furosemide 20 mg daily. Will not restart Dyazide at discharge. Recommend repeat basic metabolic panel in 1 week. Metoprolol tartrate may be changed to Toprol XL 75 mg daily at discharge. Eliquis for anticoagulation. Outpatient cardiology follow-up in 7-14 days. Pacemaker threshold testing in 4-6 weeks. Cardiology will sign off. Please call with questions. Laboratory Results Last 24 Hours Test 06/19/17 07:03 White Blood Count 8.03 K/uL Red Blood Count 4.81 M/uL Hemoglobin 13.9 g/dL Hematocrit 41.9 % Mean Corpuscular Volume 87.1 fL Mean Corpuscular Hemoglobin 28.9 pg Mean Corpuscular Hemoglobin Concent 33.2 g/dl RDW Standard Deviation 48.1 fL RDW Coefficient of Variation 15.1 % Platelet Count 167 K/uL Mean Platelet Volume 10.4 fL Activated Partial Thromboplast Time 32.2 SECONDS Partial Thromboplastin Ratio 1.2 Sodium Level 136 mmol/L Potassium Level 4.0 mmol/L Chloride Level 101 mmol/L Carbon Dioxide Level 28 mmol/L Anion Gap 7.0 mmol/L Blood Urea Nitrogen 23 mg/dl Creatinine 1.06 mg/dl Est Creatinine Clear Calc Drug Dose 52.6 ml/min Estimated GFR () 60.3 Estimated GFR (Non- 52.0 BUN/Creatinine Ratio 21.6 Random Glucose 94 mg/dl Calcium Level 8.7 mg/dl Magnesium Level 2.0 mg/dl
[2017-06-19 11:07] VITALS: BP 122/81; PULSE 60; TEMP 36.9; O2SAT 96
[2017-06-19] MEDS ORDERED: OXGN (11:28)
[2017-06-19] MEDS ORDERED: FURO-85 PO (11:28)
[2017-06-19] MEDS ORDERED: METO-478 PO (11:28)
[2017-06-19] MEDS ORDERED: APIX1TAB3 PO (11:28)
[2017-06-19] MEDS ORDERED: SPR25 PO (11:28)
--- NOTE | 2017-06-19 11:47 | Discharge Instructions ---
Discharge Instructions Date of Service Jun 19, 2017. Admission Reason for Admission: Complete Heart Block Discharge Discharge Diagnosis / Problem: Complete Heart Block Discharge Goals Goal(s): Decrease discomfort, Improve function, Diagnostic testing, Therapeutic intervention Activity Recommendations Activity Limitations: resume your previous activity . Instructions / Follow-Up Instructions / Follow-Up Please follow-up with Dr. Bob in [facility] on June 21 at 11: 05AM Please follow-up with cardiology in 7-10 days - you will get a phone call with a date and time * You will then have a pacemaker check in 4-6 weeks * Please take Eliquis 5mg twice a day (this is a blood thinner) * Please take Aldactone and Lasix daily (these are diuretics that will prevent fluid overload) * Please take Toprol XL - this is to control your heart rate * Please take Aldactone daily - this is for your blood pressure * You will need oxygen as an outpatient - you will need between 2 and 4L when you are exerting yourself * You will need an outpatient sleep study Current Hospital Diet Patient's current hospital diet: AHA Diet (Heart Healthy), Low Sodium Diet (2gm Na) Discharge Diet Recommended Diet: AHA Diet (Heart Healthy), Low Sodium Diet (2gm Na) Procedures Procedures Performed: dual chamber pacemaker under flouroscopic guidance Pending Studies Studies pending at discharge: no Laboratory Results Hemoglobin A1c Test 06/14/17 05:45 Range/Units Estimated Average Glucose 123 mg/dl Hemoglobin A1c 5.9 H 4.5-5.6 % Medical Emergencies . Who to Call and When: Medical Emergencies: If at any time you feel your situation is an emergency, please call 911 immediately. . Non-Emergent Contact Non-Emergency issues call your: Primary Care Provider, Homebirth Midwife . . "Provider Documentation" section prepared by Reinaldo Palm. .
--- NOTE | 2017-06-19 11:49 | Discharge Summary ---
Discharge Summary Date of Service Jun 19, 2017. Discharge Summary Admission Date: Jun 13, 2017 at 20:27 Discharge Date: Jun 19, 2017 Discharge Disposition: Home with services Principal Diagnosis: Complete Heart Block New Onset Atrial Flutter Right Ventricular Dysfunction Raynaud's Hypertension Medication Reconciliation New Medications: Home O2 Therapy (Oxygen) Gas 2-4 LITERS NA PRN PRN for Shortness of Breath for 30 Days, BTL Metoprolol Succinate (Toprol Xl) 25 Mg Tab 3 TAB PO DAILY for 30 Days, #90 TAB 0 Refills Apixaban (Eliquis) 5 Mg Tab 5 MG PO BID for 30 Days, #60 TAB Spironolactone (Spironolactone) 25 Mg Tab 25 MG PO QAM for 30 Days, #30 TAB Changed Medications: Furosemide (Lasix) 20 Mg Tab 20 MG PO DAILY for 30 Days, #30 TAB (Changed from: BID; Removed Reason) Continued Medications: Amlodipine (Norvasc) 10 Mg Tab 10 MG PO DAILY, TAB Aspirin (Aspirin Ec) 81 Mg Tab 81 MG PO DAILY Discontinued Medications: Cephalexin Monohydrate (Keflex) 500 Mg Cap 500 MG PO QID for 10 Days, #40 CAP Triamterene/Hctz (Triamterene/Hctz 37.5-25MG) 1 Tab Tab 1 TAB PO DAILY, TAB Admission Information HPI (per Admitting provider): 71-year-old female who presents to the ER with bilateral lower extremity swelling and shortness of breath. Patient reports her symptoms have been going on for approximately the past 2 weeks. Patient recently established care at [facility] and was evaluated in the clinic yesterday. She had bilateral lower extremity Dopplers completed that were negative for DVT. Outpatient proBNP was checked and was elevated. Patient was sent to the ER for further evaluation. Patient reports she has been feeling well up until the past couple weeks. Reports that she is generally very active however is felt generally fatigued over the past couple of weeks as well. She has had exertional shortness of breath but denies orthopnea. She does not monitor her weight routinely. She denies chest pain, palpitations, lightheadedness, dizziness, diaphoresis, and syncopal events. No abdominal pain, nausea, vomiting, or diarrhea. She denies fever or chills. No urinary symptoms. At the clinic yesterday she was found to have blistering and redness over the first and second toes of the right foot. She was given a prescription for Keflex. In the ED patient was found to be in complete heart block. Her blood pressure has remained stable. Labs show a mild hypomagnesemia, otherwise unremarkable. Patient was given Lasix 20 mg IV and potassium and magnesium replacement. She was evaluated by cardiology in the ED. She will be admitted to the ICU for further management. Physical Exam (per Admitting): General Appearance: WD/WN, no apparent distress Head: normocephalic, atraumatic Eyes: normal inspection, EOMI, sclerae normal ENT: hearing grossly normal, + pertinent finding (mucous membranes moist) Neck: supple, no JVD, trachea midline Respiratory/Chest: lungs clear, normal breath sounds, no respiratory distress Cardiovascular: normal peripheral pulses, + bradycardia (regular rhythm), + pertinent finding (+3 edema BLLE) Abdomen/GI: normal bowel sounds, non tender, soft Extremities/Musculoskelatal: normal inspection, no calf tenderness, normal capillary refill Neurologic/Psych: no motor/sensory deficits, alert, normal mood/affect, oriented x 3 Skin: + cyanosis (Raynaud like appearance noted to BL fingers), + pertinent finding (bruising and blistering noted to right 1st and 2nd toes with some surrounding erythema) Hospital Course New onset Atrial Flutter 06/19 * for this atrial flutter, patient to be on metoprolol as per cardiology * she is on Eliquis for anticoagulation * outpatient w/up - outpatient sleep study * two step performed - due to Raynaud's and due to weakness a complete two step could not be performed - she will likely require O2 with ambulation, but unsure how much she will need; 2-4L * as per cardiology, she can take Aldactone and Lasix daily * could consider transitioning her off of Norvasc due to lower extremity edema 06/18 * patient is doing well; she's had her pacemaker inserted, no issues * plan for possible d/c in AM on Eliquis, Aldactone, Metoprolol, Aspirin, Norvasc and PRN Lasix * outpatient f/u with cardiology and PCP * will need outpatient sleep study for further eval of RV dysfunction 06/17 * appreciate cardiology input * Eliquis started, heparin ggt stopped * sotalol stopped - metoprolol started * Lasix and Aldactone started due to fluid overload * s/p pacemaker insertion 06/16 * appreciate cardiology input * pacemaker interrogation - atrial flutter/fibrillation * started on IV heparin ggt * sotalol load * EKG daily to monitor QTc RV Systolic Dysfunction Lower Extremity Edema 06/16 * given IV Lasix - can continue PO as outpatient * outpatient sleep study 06/15 * appreciate cardiology input * CT chest done, PE ruled out * will monitor overnight, check kidney function in AM * if doing well, can d/c with Lasix * outpatient sleep study 06/14 * resting echo pending * possibly due to complete heart block * received one dose of IV Lasix * continue Keflex Superficial Thrombus - LUE * warm compress and patient is already on Eliquis, swelling improving Complete Heart Block 06/16 * s/p PPM 06/15 * appreciate cardiology and EP input * s/p permanent pacer placement * currently pacing well * denies any symptoms * transfer from ICU to tele HTN * BP intermittently elevated, will continue amlodipine * Hold Maxzide for now DVT ppx * Eliquis FULL CODE Total time spent on discharge = 45 minutes This includes examination of the patient, discharge planning, medication reconciliation, and communication with other providers. Discharge Instructions Please follow-up with Dr. Bob in [facility] on June 21 at 11: 05AM Please follow-up with cardiology in 7-10 days - you will get a phone call with a date and time * You will then have a pacemaker check in 4-6 weeks * Please take Eliquis 5mg twice a day (this is a blood thinner) * Please take Aldactone and Lasix daily (these are diuretics that will prevent fluid overload) * Please take Toprol XL - this is to control your heart rate * Please take Aldactone daily - this is for your blood pressure * You will need oxygen as an outpatient - you will need between 2 and 4L when you are exerting yourself * You will need an outpatient sleep study
[2017-06-19 14:24] VITALS: BP 122/81; PULSE 60; TEMP 36.9; O2SAT 96
[2017-06-20 08:30] LABS: ANA TITER > OR = 1:1280 TITER (<1:40)
== END 2017-06-19 14:40 | disposition home health service (06) | DRG 243 ==
LOC: C.EDB 14:28 → UNDOADMIN 20:14 → C.MSICU 20:14 → ENRESERV 20:31 → CANBEDREQ 06-14 11:55 → ENRESERV 06-16 10:04 → CANRESERV 06-16 10:04 → EDBEDREQ 06-16 10:39 → ENRESERV 06-16 10:54 → C.2T 06-16 11:08
PROVIDERS: ADMIT Hospitalist; ATTEND Family Medicine
PROC: 0JH606Z Insertion of Pacemaker, Dual Chamber into Chest Subcutaneous Tissue and Fascia, Open Approach (ICD-10-PCS; principal; 2017-06-13)
PROC: 02HK3JZ Insertion of Pacemaker Lead into Right Ventricle, Percutaneous Approach (ICD-10-PCS; principal; 2017-06-13)
PROC: 02H63JZ Insertion of Pacemaker Lead into Right Atrium, Percutaneous Approach (ICD-10-PCS; principal; 2017-06-13)
DX: I44.2 Atrioventricular block, complete (principal); L03.115 Cellulitis of right lower limb; I48.92 Unspecified atrial flutter; I51.9 Heart disease, unspecified; I73.00 Raynaud's syndrome without gangrene; I10 Essential (primary) hypertension; Z87.891 Personal history of nicotine dependence; Z88.1 Allergy status to other antibiotic agents; Z88.0 Allergy status to penicillin; I27.20 Pulmonary hypertension, unspecified

== ENCOUNTER → 2017-08-19 | Outpatient (CLI) | payer OTHER ==
[~2017-08-19] MED LIST: AMLO-114 PO; ASPI81TA28 PO; FURO-85 PO; METO-478 PO; OXGN; SPR25 PO
--- NOTE | 2017-08-20 05:46 | PAP/PSG TECHNICIAN REPORT ---
[facility] [employer] Polysomnogram Report Study name: None Report date: 08/20/2017 Study date: 08/19/2017 Referring Physician: Dr. Oliver Snyder DO Name: EDWIN GRIFFIN Interpreting Physician: Oliver Snyder D.O. Date of : 1945 [employer] Pulper: Kelin Tidwell RPSJOSE. Sex: Female Age: 71 StudyType: PSG Weight: 198 lbs Height: 71 years, Height 5' 3" Neck Circum: 14 cm BMI: 35.07 Medications: Amlodipine 10 mg, Aspirin 81 mg, Eliquis 5 mg, Furosemide 20 mg, Metoprolol Succinate 25 mg, Spironolactone 25 mg, Triamcinoloone Acetonide 0.025% Patient History 71 yr. old female here for a diagnostic study. Study ran on patient usual 2 lpm supplemental oxygen, she is on it 24/10. Patient had a recent hospitalization for a flutter and complete heart block. She was also found to have significant right ventricular block. Patients son hears loud snoring but no apneas. ESS 07/22 (she no longer drives) Parameters Monitored NPSG: E1-M2, E2-M1, Fp1-M2, Fp2-M1, F3-M2, F4-M2, F4-M1, C3-M2, C4-M2, C4-M1, O1-M2, O2-M2, O2-M1, T3-M2, T4-M1, P3-M2, P4-M1, CHIN1, CHIN2, HR, EKG, Legs, PFLOW, SNOR, FLOW, CFLOW, Tidal Volume, THOR, ABDO, SpO2, PLTH, CPRESS, ETCO2 Wave, ETCO2, pH Sleep Architecture Sleep Stages Time at Lights Off 10:01:41 PM STAGES Time (min.) TST (%) Time at Lights On 5:17:11 AM Wake 217.5 -- Total Recording Time (TRT) 435.50 min. N1 18.5 8 Total Sleep Period (TSP) 305.5 min. N2 156.0 72 Total Sleep Time (TST) 218.0min. N3 1.5 1 Awake Time 217.5 min. REM 42.0 19 Wake after Sleep Onset 158.0 min. Sleep Efficiency (SE) 50 % Sleep Onset Latency (BRYAN) 59.5 min. Number of Stage 1 Shifts None Awakenings 12 Stage Changes 51 Number of REM periods 3 REM 42.0 19 REM Latency 100.5 min. NREM 176.0 81 Body Position Analysis Supine Right Left Side Prone Vertical Total Sleep Time (min.) 231.1 0.0 108.3 108.35 0.0 0.0 Total Sleep Time (%) 50% 0% 50% 50 0% N/A% Total Sleep Time REM (min.) 14.7 0.0 27.3 None 0.0 0.0 Total Sleep Time NREM (min.) 95.0 0.0 81.0 None 0.0 0.0 Intermittent Wake (min.) 121.4 0.0 96.1 None 0.0 0.0 Total Sleep Period (%) 61% None None None None None Arousals Myoclonus (PLM) * Events Count Index Events Count Index Spontaneous 8 2 Events Awake (PLMW) 103 28.4 Respiratory 4 1.1 Events Asleep w/ Arousal (PLMA) 11 3.0 PLM 11 3 Events Asleep w/o Arousal (PLMS) 47 12.9 Snoring 6 2 Total Asleep 58 16.0 Total 29 8 Total 161 22 Respiratory Analysis * CA OA MA CH H RERA Total Count 0 0 0 0 12 2 12 Index 0.0 0.0 0.0 0 3.3 1 3.9 Mean Duration 0.0 0.0 0.0 0.00 28.8 17.2 27.1 Longest Duration 0.0 0.0 0.0 0.00 0.0 17.7 58.6 Respiratory Event Summary Total Supine ~Supine Right Left Prone REM NREM Apneas Count 0 0 0 N/A 0 N/A 0 0 Index 0.0 0 0 N/A 0.0 N/A 0 0 Hypopneas (4% Desat) Count 12 9 3 N/A 3 N/A 6 6 Index 3.3 4.9 2 N/A 1.7 N/A 8.6 2.0 Apneas & All Hypopneas Count 12 9 3 N/A 3 N/A 6 6 Index 3.3 5 2 N/A 2 N/A 8.6 2.0 Respiratory Events (Meteorological Technician+All Hyp+RERA) Count 12 11 3 N/A 3 N/A 6 6 Index 3.9 6 2 N/A 1.7 N/A 8.6 2.7 Respiratory Related Arousal Count 4 11 1 N/A 1 N/A 0 4 Index 1.1 2 1 N/A 1 N/A 0 1 Snoring Analysis Supine Right Left Prone REM NREM Total Snore duration 13.7 min Snores count 6 N/A 720 N/A 233 493 726 Snore mean duration 1.1 Sec Snores index 3 N/A 399 N/A 332.9 168.1 199.8 TST with snoring (%) 6.3% SpO2 Analysis Total REM NREM Awake <50% 0.0 min. 0.0 min. 0.0 min. 0.0 min. 51 - 60% 0.0 min. 0.0 min. 0.0 min. 0.0 min. 61 - 70% 0.0 min. 0.0 min. 0.0 min. 0.0 min. 71 - 80% 0.0 min. 0.0 min. 0.0 min. 0.0 min. 81 - 90% 3.4 min. 1.6 min. 0.0 min. 1.8 min. 91 - 100% 414.4 min. 40.4 min. 175.7 min. 198.2 min. Average 95 94 95 95 Minimum SpO2 83 89 91 83 Desaturation Event Index 2.3 10.0 3.1 0.3 # Desat. Events below 89% N/A N/A N/A N/A Time(%) with Saturation below 89% 0.1 0.0 0.0 0.1 Time(min.) with Saturation below 89% 0.6 0.0 0.0 0.6 Heart Rate Analysis End Tidal CO2 Analysis Min (bpm) Max (bpm) Average (bpm) TSP (mins) % of TSP Awake 59 255 61 Above 55 mmHg 0.0 0.0 NREM 54 75 61 50-55 mmHg 0.0 0.0 REM 58 70 62 45-50 mmHg 0.0 0.0 Overall 54 75 61 40-45 mmHg 0.0 0.0 35-40 mmHg 0.7 0.3 30-35 mmHg 42.3 19.4 Average ETCO2 0.0 Supplemental O2 Values Minimum O2 level: None Value Start Time End Time [employer] Comments MS. Griffin slept in the left and supine positions. Cardiac arrhythmia and PLMs noted. No bruxism noted. Snoring was noted and scored as a 3 on a scale of 0 through 5. (0=no snoring, 5=snoring loud enough to be heard through a closed door or down the reyna way) MS. Griffin awoke to use the restroom once during the night. MS. Griffin stated, that was a horrible experience. The final report will be interpreted and signed by a sleep physician. The completed physician report will then be placed in the patient medical record. Therapy (cm H2O) 0 TIB (min.) 435.5 TST (min.) 218.0 Sleep Onset (min.) 59.5 REM Onset From Sleep (min.) 100.5 Sleep Efficiency % 50 Wakefulness (%) 50 Wakefulness (min.) 217.5 NREM 1 (%) 8 NREM 1 (min.) 18.5 NREM 2 (%) 72 NREM 2 (min.) 156.0 NREM 3 (%) 1 NREM 3 (min.) 1.5 REM (%) 19 REM (min.) 42.0 # Arousals 29 Arousal Index 8 # Snore 726 Snore Index 199.8 AHI 3.3 AHI Supine 5 AHI Non-Supine 2 NREM AHI 2.0 REM AHI 8.6 RDI 3.9 # Obstructive Apnea 0 # Central Apnea 0 # Mixed Apnea 0 # Hypopneas 12 RERAs 2 Total Respiratory Events 15 Time Below SpO2 89% (min.) 0.0 Mean NREM SpO2 (%) 95 Mean REM SpO2 (%) 94 Mean Sleep SpO2 (%) 94 Min NREM SpO2 (%) 91 Min REM SpO2 (%) 89 Position Supine (min.) 231.1 Position Non-supine (min.) 108.3 LM Index Sleep 16.0 LM Index NREM 18.8 LM Index REM 4.3 Mean Heart Rate (bpm) 61 Min Heart Rate (bpm) 54
== END | disposition home or self-care (01) ==
LOC: C.NEUR 21:00
PROVIDERS: ATTEND Internal Medicine Pulmonary Disease
DX: G47.33 Obstructive sleep apnea (adult) (pediatric) (principal); Z95.0 Presence of cardiac pacemaker; I44.2 Atrioventricular block, complete; Z88.0 Allergy status to penicillin; Z88.1 Allergy status to other antibiotic agents